=== PATIENT | female | born 1970 | race Asian ===

== ENCOUNTER 2023-03-21 06:54 | Outpatient (RCR) | payer BC, SELFPAY | END 2023-03-21 23:59 | disposition home or self-care (01) | LOC: RPT 06:54 | PROVIDERS: ATTENDING PHYSICIAN Orthopaedic Surgery; FAMILY PHYSICIAN Nurse Practitioner Family | DX: M22.2X1 Patellofemoral disorders, right knee (principal) | CPT/HCPCS: 97110; 97162 ==

== ENCOUNTER → 2024-06-14 10:25 | Outpatient (REF) | payer BC, SELFPAY | LOC: WDC 10:25 | PROVIDERS: ATTENDING PHYSICIAN Obstetrics & Gynecology; FAMILY PHYSICIAN Nurse Practitioner Family | DX: Z12.31 Encounter for screening mammogram for malignant neoplasm of breast (principal) | CPT/HCPCS: 77063; 77067 ==

== ENCOUNTER → 2024-06-18 10:17 | Outpatient (REF) | payer BC, SELFPAY | LOC: HWRAD 10:17 | PROVIDERS: ATTENDING PHYSICIAN Obstetrics & Gynecology; FAMILY PHYSICIAN Nurse Practitioner Family | DX: D25.9 Leiomyoma of uterus, unspecified (principal) | CPT/HCPCS: 76830; 76856 ==

== ENCOUNTER → 2024-09-12 07:49 | Outpatient (REF) | payer OTHER, SELFPAY | LOC: HWRAD 07:49 | PROVIDERS: ATTENDING PHYSICIAN Obstetrics & Gynecology; FAMILY PHYSICIAN Nurse Practitioner Family | DX: N83.201 Unspecified ovarian cyst, right side (principal) | CPT/HCPCS: 76830; 76856 ==

== ENCOUNTER → 2024-12-11 19:29 | Outpatient (REF) | payer OTHER, SELFPAY | LOC: MRI 19:29 | PROVIDERS: ATTENDING PHYSICIAN Obstetrics & Gynecology | DX: N83.291 Other ovarian cyst, right side (principal) | CPT/HCPCS: 72197; A9575 ==

== ENCOUNTER 2025-01-03 06:18 | Day surgery (SDC) | payer OTHER, SELFPAY ==
[2024-12-27 09:01] LABS: Hematocrit 39.9 % (37.0-47.0); Hemoglobin 13.0 g/dL (12.0-16.0); Mean Corp Hgb Conc. 32.6 g/dL (33.0-37.0); Mean Corpuscular Volume 86.4 fL (81.0-99.0); Nucleated Red Blood Cells % 0 %; Platelet Count 260 10^3/uL (130-400); Red Cell Dist. Width 13.5 % (11.5-14.5)
[2024-12-27 09:30] LABS: Blood Urea Nitrogen 13 mg/dl (7-17); Calcium 9.2 mg/dl (8.4-10.2); Carbon Dioxide 26 mmol/L (22-30); Chloride 103 mmol/L (98-107); Glucose 89 mg/dl (70-99); Potassium 4.2 mmol/L (3.5-5.1); Sodium 135 mmol/L (135-145); eGFR > 60.00
[2024-12-27 14:05] VITALS: BMI 21.9
[2025-01-03] VITALS (8 sets, daily range): BP systolic 115–146; BP diastolic 75–88; BMI 21.9
[2025-01-03] MEDS: NORMOSOL-R/PLASMALYTE-A 1000 IV (08:06)
[2025-01-03] MEDS: NEURONTIN 300 MG PO (08:06)
[2025-01-03 08:22] LABS: HCG, Urine Qualitative Screen Negative
[2025-01-03 08:35] LABS: ALT (SGPT) 43 U/L (0-35); AST (SGOT) 39 U/L (14-36); Albumin 4.5 g/dl (3.5-5.0); Alkaline Phosphatase 72 U/L (38-126); Blood Urea Nitrogen 9 mg/dl (7-17); Calcium 9.3 mg/dl (8.4-10.2); Carbon Dioxide 25 mmol/L (22-30); Chloride 106 mmol/L (98-107); Estimated Creatinine Clearance 82 ml/min; Glucose 91 mg/dl (70-99); Potassium 3.9 mmol/L (3.5-5.1); Sodium 138 mmol/L (135-145); Total Protein 7.3 g/dl (6.3-8.2); eGFR > 60.00
--- NOTE | 2025-01-03 09:17 | W.IMMPOSTOP ---
Surgical Immed Post Op Note
-
Primary Surgeon: Greta Helms DO
Assisting Surgeon: none
Pre-op Diagnosis: Menorrhagia, fibroid uterus
Post-op Diagnosis: same
Procedure Performed: Hysteroscopy D&C with US guidance
Anesthesia Type: general LMA Dr. Rodas
Specimen / Cultures: 1. endocervical curettings 2. endometrial curettings
Estimated Blood Loss: less than 2 ml
Complications: none
Operative Findings: Markedly enlarged uterus with multiple fibroids including a large posterior fibroid that is displacing the endometrial canal anteriorly in a C-shaped angle. Scope able to be advanced to approx 2/3 of endometrial cavity but could
not advance scope to see fundus or tubal ostia due to force on camera from fibroid and curved nature. Myosure Reach used to sample visible portion of endometrium.
Fluid deficit 50ml.
Counts correct times 2.
== END 2025-01-03 11:31 | disposition home or self-care (01) ==
LOC: SDS 06:18
PROVIDERS: ATTENDING PHYSICIAN Obstetrics & Gynecology; FAMILY PHYSICIAN Nurse Practitioner Family
DX: N92.0 Excessive and frequent menstruation with regular cycle (principal); D25.1 Intramural leiomyoma of uterus; N85.01 Benign endometrial hyperplasia
CPT/HCPCS: 58558; 36415; 76998; 80048; 80053; 81025; 85025; 86850; 86900; 86901; 88305; 93005

== ENCOUNTER 2025-01-12 22:46 | Inpatient (IN) | payer OTHER, SELFPAY ==
[2025-01-12 17:53] VITALS: BP 175/98
[2025-01-12 18:22] LABS: Hematocrit 35.1 % (37.0-47.0); Hemoglobin 11.0 g/dL (12.0-16.0); Mean Corp Hgb Conc. 31.3 g/dL (33.0-37.0); Mean Corpuscular Volume 87.3 fL (81.0-99.0); Nucleated Red Blood Cells % 0 %; Platelet Count 346 10^3/uL (130-400); Red Cell Dist. Width 13.4 % (11.5-14.5)
[2025-01-12 18:23] LABS: Urine Character Clear (Clear)
[2025-01-12 18:31] LABS: Urine Red Blood Cell >100 /HPF (0-2)
[2025-01-12 18:35] LABS: COVID-19 Antigen Negative (Negative)
[2025-01-12 18:46] LABS: ALT (SGPT) 323 U/L (0-35); AST (SGOT) 189 U/L (14-36); Albumin 3.7 g/dl (3.5-5.0); Alkaline Phosphatase 279 U/L (38-126); Blood Urea Nitrogen 10 mg/dl (7-17); Calcium 9.0 mg/dl (8.4-10.2); Carbon Dioxide 27 mmol/L (22-30); Chloride 105 mmol/L (98-107); Glucose 134 mg/dl (70-99); Potassium 3.9 mmol/L (3.5-5.1); Sodium 138 mmol/L (135-145); Total Protein 6.8 g/dl (6.3-8.2); eGFR > 60.00
--- NOTE | 2025-01-12 20:26 | ED.GENMED ---
History of Present Illness
General
Chief Complaint: Post Operative Problem(s)
Source: patient
Exam Limitations: none
Time Seen by Provider: 01/12/25 19:50
History of Present Illness
History of Present Illness:
54-year-old female 1 week of fever. Up to 101. On and off for the week. Some mild increased bleeding after uterine biopsy 9 days ago. Fever started 6 to 7 days ago. Some minimal cough. She did start feeling like she had a cold at the arrival
of that procedure. No shortness of breath no abdominal pain no rash no other complaints. No travel history.
Past History
Past History
ED Past Medical History: Other (Fibroid uterus)
ED Past Surgical History: Appendectomy (Age 16), and Urological (Uterine biopsy)
Social History
Tobacco: Non-smoker
Alcohol: None
Personal:
Living: with family
Employment: Not employed
Family History
Family History: Other (Noncontributory)
Review of Systems
Review of Systems
All Other Systems: Not applicable
Constitutional: Reports fever
Respiratory: Reports cough; Denies trouble breathing
Cardiac: Denies chest pain
ABD/GI: Denies abdominal pain
Phy Exam
Physical Exam
Physical Exam:
GENERAL: Alert and oriented in no apparent distress
EYE: Orbits normal.
NECK: Supple, no significant adenopathy.
ENT: Pharynx without erythema
CARDIAC: Regular rate and rhythm without any obvious murmurs.
LUNGS: A few crackles in the left base. No respiratory distress. Slight occasional dry cough
ABDOMEN: Soft, without focal tenderness or distention. Suprapubic fullness consistent with her uterine fibroid.
NEUROLOGICAL: Alert and oriented , grossly non-focal
SKIN: Warm and dry, no rash or lesion, no discoloration, skin intact.
MUSCULOSKELETAL: No edema,no deformity.Good color
PSYCH: Normal and appropriate interaction.
Course
Orders/Labs/Results
Orders:
Orders
01/12/25 18:00
Complete Blood Count/With Diff Urgent
Comprehensive Metabolic Panel Urgent
Lipase Urgent
Comment: ADD ON
01/12/25 18:02
COVID-19 Antigen Urgent
Source: Nasal Swab
Urinalysis Reflex To Culture Urgent
Date Specimen was Collected: 01/12/25
Time Specimen was Collected: 17:55
Urine Microscopic Reflex Cult Urgent
Urine Culture Urgent
DERRICK Source: U
Specimen Description:
Date Specimen was Collected: 01/12/25
Time Specimen was Collected: 17:55
01/12/25 20:19
IV Insert/Care/Rem.- Treatment PRN
0.9% Sodium Chloride 1000 ml [Nss] 1,000 ml IV BOLUS
CXR2 [CR Chest - 2 Views ] Urgent
Comment:
Reason For Exam: cough fever
01/12/25 20:20
CT Abd/Pel (IV only)-DH only Urgent
Comment:
Reason For Exam: Fevers/recent uterine biopsy
01/12/25 20:31
Blood Culture Q30M
DERRICK Source: Blood/Venous
Specimen Description:
Blood Culture Q30M
DERRICK Source: Blood/Venous
Specimen Description:
Influenza A+B Rapid Molecular Urgent
DERRICK Source: Nasal Swab
Specimen Description:
Date Specimen was Collected: 01/12/25
Time Specimen was Collected: 17:55
01/12/25 21:34
Piperacillin/Tazo 3.375 Gram [Zosyn] 3.375 gram in 50 ml IV NOW
01/12/25 21:39
Ketorolac [Toradol] 15 mg IV NOW STA
01/12/25 22:07
Dexamethasone Sod Phosphate [Decadron] 6 mg IV NOW STA
Diphenhydramine [Benadryl] 25 mg PO NOW STA
01/12/25 22:29
Add On- LAB Urgent
Tests Added?: lipase
01/12/25 22:34
Consult PSYCHOLOGIST ENGINEERING [PSYCHOLOGIST ENGINEERING CONSULT] Routine
Consulting Provider: Cisco Arzola
Was physician already notified: Yes
Reason for consult: fever post endomerial biopsy
INFECTIOUS DISEASE CONSULT Routine
Consulting Provider: Jaki Mireles
Was physician already notified: No
Reason for consult: fever likely endometritis s/p biopsy
01/12/25 22:35
Consult Notification Routine
Specialty to Notify: Infectious Disease
01/12/25 22:36
Admit/Transfer Patient As Directed
Co-Sign Provider:
Level of Care: Inpatient admission
Assign to:: Medical/Surgical
Physician / Group: hank keyes
Diagnosis: fever likley endometritis s/p biopsy etoh use disorder/transaminitis
Reason for Hospitalization: fever likley endometritis s/p biopsy etoh use disorder/transaminitis
Expected length of stay greater than two midnights?: Yes
ELOS- Estimated Length of Stay in days: 3
I certify the patient meets the requirements for IP care: Yes
Code Status As Directed
Resuscitation Status: Full Code
01/12/25 22:43
PRN Pain Medication Management As Directed
May give lesser potent ordered pain med per pt: Yes
preference::
Protocol:: Medication orders for pain may be administered in a
manner that supports deferring to patient preference
when the pt is:
- Requesting an ordered lesser potent pain medication.
Least to most potent pain medications are defined
as: acetaminophen < NSAID < tramadol < opioids
(morphine, oxycodone, hydromorphone).
- Requesting a lesser dose of the same medication IF
ORDERED.
- Requesting a less intrusive route of administration
if both routes are prescribed by the provider (PO <
IV).
Abnormal Lab Results
01/12/25 01/12/25
18:00 18:02
RBC 4.02 L 10^6/uL
(4.20-5.40)
Hgb 11.0 L g/dL
(12.0-16.0)
Hct 35.1 L %
(37.0-47.0)
MCHC 31.3 L g/dL
(33.0-37.0)
Abs Immat Gran (auto) 0.1 H 10^3/uL
(0-0.05)
Absolute Neuts (auto) 7.7 H 10^3/uL
(1.4-6.5)
Absolute Lymphs (auto) 1.0 L 10^3/uL
(1.2-3.4)
Absolute Monos (auto) 0.7 H 10^3/uL
(0.1-0.6)
Immature Gran % 0.8 H %
(0-0.5)
Neutrophils % 79.7 H %
(42.2-75.2)
Lymphocytes % 10.8 L %
(20.5-51.1)
Glucose 134 H mg/dl
(70-99)
AST 189 H U/L
(14-36)
ALT 323 H U/L
(0-35)
Alkaline Phosphatase 279 H U/L
(38-126)
Ur Occult Blood Reflex 4+ A
(Negative)
Leukocyte Esterase Rfl 3+ A
(Negative)
Urine RBC >100 A /HPF
(0-2)
Urine WBC (Reflex) 11-15 A /HPF
(0-5)
Urine Bacteria (Reflex) Moderate A
(Negative)
Urine Albumin (Reflex) 2+ A
(Neg - Trace)
01/12/25 18:00
01/12/25 18:00
Vital Signs
Initial and Last Documented VS:
Initial Vital Signs
Temp Pulse Resp BP Pulse Ox
100.4 F H 95 18 175/98 98
01/12/25 17:53 01/12/25 17:53 01/12/25 17:53 01/12/25 17:53 01/12/25 17:53
Last Documented Vital Signs
Temp Pulse Resp BP Pulse Ox
100.8 F H 92 16 160/84 98
01/12/25 21:14 01/12/25 21:10 01/12/25 21:10 01/12/25 21:10 01/12/25 21:10
MDM/Problems Addressed
Differential Diagnosis Includes:
Large differential for this autonomic fever. Including respiratory/viral, urinary, post biopsy infection. She is clinically stable. Labs are stable. She does have elevated LFTs that she has had in the past. Urine does appear infected. She
describes a relatively true cephalosporin allergy. Await CT scan. Also get a chest x-ray with a cough. Will give a dose of Cipro
*Pulse Oximetry
SaO2: 98
Oxygen Mode of Delivery: Room air
Patient hypoxic: no
*Critical Care Note
Total Time (30-74mins, 75-104mins- exclusive of procedures): Not Applicable
Data Reviewed
Review of Other/Old Records Reveals: Labs, Records, Operative Reports and Testing
Update Note
Update Note:
2209... Patient has a small bleb over her left eye that itches. She had received Toradol Zosyn and IV dye. She has had penicillins previously. This is very very localized. Not convinced it is a reaction to any of these medications however we
will give her a dose of Benadryl and 1 dose of steroids.
ED Attending Note
-
Portions of this chart may have been created with voice recognition software.� Occasional wrong word or��sound alike� substitutions may have occurred due to the inherent limitations of voice recognition software.
Discharge Plan
Departure
Patient Disposition: Admit
Date of Disposition: 01/12/25
Time of Disposition: 21:55
Presentation/result/management discussed w/ accepting MD/DO: ORNAMENTAL IRON WORKER HELPER
Discharge Problem:
Intermittent fevers, Pyelonephritis, Transaminitis, Known pelvic mass
Interventions
Interventions:
*Risk Screen - Suicide Last Done: 01/12/25 17:53
*General Assessment Last Done: 01/12/25 17:53
*Neglect/Abuse Screening Last Done: 01/12/25 17:53
*ED- Fall Risk Assessment Last Done: 01/12/25 17:53
*ED COVID-19 Vaccine History Last Done: 01/12/25 17:53
*ED Influenza Vaccine History Last Done: 01/12/25 17:53
ED-Skin Assessment Last Done: 01/12/25 20:00
[2025-01-12] MEDS: NSS 1000 IV (20:33)
[2025-01-12 21:10] VITALS: BP 160/84
[2025-01-12] MEDS: TORADOL 15 MG IV (21:40)
[2025-01-12] MEDS: ZOSYN 50 IV (21:41)
--- NOTE | 2025-01-12 22:03 | HPS.HSE ---
Family Physician
-
Family Physician: * NONE
Chief Complaint
-
Fever x 1 week
History of Present Illness
54-year-old female status post hysteroscopy, endometrial biopsy D&C 9 days ago due to menorrhagia with fibroid uterus. She reports approximately 1 week ago she started with fever up to 101 �F along with minimal cough. She also reports chronic
urinary frequency due to large fibroid however she feels frequency has increased over the past few days. She denies headache, sore throat, chest pain, palpitations, shortness of breath, abdominal pain, nausea, vomiting, diarrhea. She received IV
Zosyn in the ER developed left upper eyelid swelling was treated with Benadryl and Decadron. She also drinks daily 1 glass of beer or wine or cocktail and 4 glasses on Monday along with 4 glasses on Monday of any alcohol. Her last drink was
yesterday 01/11/2025 at noon. She is past medical history of alcohol use disorder, HLD, menorrhagia, uterine fibroids, right adnexal mass, transaminitis.
Medical History
Past Medical History
Past Medical History: Reports Other
Additional Past Medical History:
HLD
Transaminitis
Alcohol use disorder
Past Surgical History: Reports (x2) and Other
Additional Past Surgical History:
post hysteroscopy, endometrial biopsy D&C 01/03/2025
Social History
Tobacco: Non-smoker
Alcohol: Daily (1 beer wine or cocktail daily then 4 drinks each day Monday and Monday)
Drug: None
Personal:
Living: With Family
Employment: Not Employed
Family History
Family History: Not pertinent
Allergies / Home Medications
Allergies reflects when Allergies were last updated in [employer].
Home Medications with original date entered in [employer]
Allergy/Medication List:
Allergies
Allergy/AdvReac Type Severity Reaction Status Date / Time
cephalexin (From Keflex) Allergy Rash Verified 01/03/25 07:49
Home Medications
red yeast rice 1 dose PO DAILY 12/27/24
Review of Systems
-
History Source: Patient
A 12 point ROS was completed and negative except as noted: Yes
Constitutional: Reports Fever and Chills
EENT: Denies Sore Throat or Runny Nose
Respiratory: Reports Cough; Denies Trouble Breathing
Cardiac: Denies Chest Pain, Diaphoresis, Palpitations or Syncope
Abdomen/GI: Denies Abdominal Pain, Nausea, Vomiting, Diarrhea, Constipated, Bloody Stools or Black Stools
: Reports Frequency and Incontinence; Denies Dysuria, Flank Pain, Difficulty Voiding or Urgency
Musculoskeletal: Denies Joint Pain or Edema
Skin: Denies Itching or Rash
Neurological: Denies Dizzy or Headache
Endocrine: Reports No Symptoms
Hematologic/Lymphatic: Reports No Symptoms
Psych: Reports Calm
Physical Exam
Vital Signs
Vital Signs
Temp Pulse Resp BP Pulse Ox
100.8 F H 92 16 160/84 98
01/12/25 21:14 01/12/25 21:10 01/12/25 21:10 01/12/25 21:10 01/12/25 21:10
Physical Exam
General: Conversant, Fever and Chills
HEENT: NormoCephalic, Anicteric, Moist mucous membranes, PERRLA, [place] Conjunctivae, No Ptosis and Other (Left upper eyelid swelling post IV Zosyn)
Respiratory: Clear; No Wheezes, Rales or Rhonchi
Cardiac: S1/S2 and Regular Rhythm; No Murmur, Rub, Gallop or Peripheral Edema
GI: Soft, Non Tender, Non Distended, Normal Bowel Sounds and No Hepatosplenomegaly
Rectal: Deferred by Provider
Genito-urinary: Deferred by me
Musculoskeletal: No Clubbing, No Cyanosis and No Edema
Skin: Warm and Dry; No Rash
Neuro: AO x 3, No Motor Deficits, Nonfocal/grossly intact, Cranial Nerves Intact and No Sensory Deficits; No Slurred Speech, Facial Droop, Tremors or Sedated
Psych: Calm
Laboratory Results
-
01/12/25 18:00
01/12/25 18:00
Laboratory Results
Total Bilirubin 0.4 mg/dl (0.2-1.3) 01/12/25 18:00
AST 189 U/L (14-36) H 01/12/25 18:00
ALT 323 U/L (0-35) H 01/12/25 18:00
Alkaline Phosphatase 279 U/L (38-126) H 01/12/25 18:00
Data Reviewed
-
Lab Data: Labs Reviewed by me
Impression/Plan
-
Impression/plan:
Admit to telemetry
#Fever likely secondary to endometrioid is status post endometrial biopsy 01/03/2025
#History of menorrhagia/fibroid uterus
#Status post hysteroscopy D&C with ultrasound guidance 01/03/2025 Dr. Helms
temp 100.8 F, HR 92, 160/84
COVID-negative
- IV NSS
- IV Toradol given in ER
-IV Zosyn patient developed left eyelid swelling was given Benadryl and Decadron
- Will give IV Unasyn
- Consult TOLL TEST DESK WORKER Dr. Arzola made aware by ER
- Consult ID
- IV Toradol for fever
CT abdomen pelvis:1. No significant acute abnormality identified in the abdomen or
pelvis,
2. Bulky fibroid uterus.
3. Complex right adnexal mass redemonstrated.
CXR: No acute cardiopulmonary process
#Acute on chronic transaminitis likely secondary to alcohol use disorder
AST 189, ALT 323, alk phos [address] 2019 abdomen pelvis due to transaminitis liver gallbladder bile ducts, pancreas within normal limits
Follow CMP
- Check hepatitis panel
- Patient drinks 1 drink a day beer wine cocktail gin or tonic also drinks 4 drinks a day on Fridays and Saturdays total of 12 drinks a week
-Last drink was yesterday 01/11/2025 at 12 PM beer
#Anemia�normocytic
Hgb 11 <13 on 12/27/2024 recent menorrhagia secondary to fibroid uterus
Follow CMP
#HLD
Patient reports takes red rice yeast has not taken in 2 weeks due to surgery
DVT prophylaxis
SCDs
Full code
--- NOTE | 2025-01-12 22:07 | W.PN.UPDATE ---
Update Note
Progress Note Update
This note serves as an addendum to the H&P by coal drier operator Ebony Cabrera
HPI
54F non smoker S/p hysteroscopy , D & C and Uterine Biosy on 01/04/25 for menorrhagia and enlarged fibroid uterus, complex cystic mass of the right ovary, elevated CA-125, failed attempted office endometrial biopsy due to inability to bypass the
internal cervical os, HX tubo-ovarian abscess treated with antibiotics seen at ER:
- Spiked hi grade fever up to 101
- onset of fever started 6-7 days ago
- No SoB
Relevant VS
Temp Pulse Resp BP Pulse Ox
100.8 F H 92 16 160/84 98
01/12/25 21:14 01/12/25 21:10 01/12/25 21:10 01/12/25 21:10 01/12/25 21:10
PE
Gen: NAD
HEENT: anicteric
Neck: supple
Lungs: CTA
Cor: RRR S1 s2
Abdomen:�soft benign
URBAN DESIGN CONSULTANT: NFND
MS: no edema
Relevant data�
12/27/24 01/03/25 01/12/25
08:16 08:03 18:00
WBC 9.6
Hgb 13.0 11.0 L
Potassium 3.9
Creatinine 0.6
eGFR > 60.00
AST 39 H 189 H
ALT 43 H 323 H
Alkaline Phosphatase 279 H
01/12/25
18:02
Urine Nitrite (Reflex) Negative
Leukocyte Esterase Rfl 3+ A
Urine RBC >100 A
Urine WBC (Reflex) 11-15 A
01/03/25 Endocervix, curettage: pathology report
A.? Several minute fragments of benign endocervical epithelium, scant benign squamous epithelium and few benign stromal fragments in a background of abundant blood and mucus.
B. Endometrium, curettage:
? Benign endometrium with tubal metaplasia, benign stroma and scant benign endocervical and squamous epithelium.
A. Endocervix - ENDOCERVICAL CURETTINGS
B. Endometrium, NOS - ENDOMETRIAL CURETTINGS
ASSESSMENT & PLAN
SIRS( T > 100, HR > 90 ) of unclear origin - infective vs non infective
Potential origins: Post biopsy endometritis vs. infected Rt complex cystic mass vs. ETOH hepatitis vs. UA is unremarkable for UTI vs. tumor fever
- BCx sent
- Empiric IV Unasyn 1.5 mg q6H
- ID Consult
Elevated Transaminase : ETOH hepatitis
ETOH use disorder
- Hep serology
- Trend LFTs
- GI consult
HX menorrhagia enlarged fibroid uterus
S/P US guided hysteroscopy D and C 01/03/25 to rule out endometrial hyperplasia, EIN, or endometrial CA
- Pathology : Benign endometrium with tubal metaplasia, benign stroma and scant benign endocervical and squamous epithelium.
Elevated CA-125 with a complex adnexal mass.
- FU OVA1 testing for risk stratification to see if patient needs referral to [facility] for her surgery
- [facility] consult - Known to Dr Helms)
DVT Px: SCD
Full code
IP MS
[2025-01-12] MEDS: BENADRYL 25 MG PO (22:17)
[2025-01-12] MEDS: DECADRON 6 MG IV (22:17)
[2025-01-12 23:00] LABS: Lipase 63 U/L (23-300)
[2025-01-12 23:54] VITALS: BP 133/80; BMI 23.5
[2025-01-13] MEDS: NSS 1000 IV ×2 (00:27→13:12)
[2025-01-13] MEDS: UNASYN IV ×5 (00:32→22:57)
--- NOTE | 2025-01-13 01:01 | PTCARENOTE ---
received pt from ED at 0000. pt ambulated from stretcher to bed. pt A&O x 3. pt denies pain and offers no current complaints. call phillip within reach. plan of care ongoing.
[2025-01-13 07:30] VITALS: BP 130/80
[2025-01-13 08:10] LABS: Hematocrit 33.4 % (37.0-47.0); Hemoglobin 11.0 g/dL (12.0-16.0); Mean Corp Hgb Conc. 32.9 g/dL (33.0-37.0); Mean Corpuscular Volume 85.2 fL (81.0-99.0); Nucleated Red Blood Cells % 0 %; Platelet Count 372 10^3/uL (130-400); Red Cell Dist. Width 13.2 % (11.5-14.5)
[2025-01-13 08:40] LABS: ALT (SGPT) 269 U/L (0-35); AST (SGOT) 95 U/L (14-36); Albumin 3.6 g/dl (3.5-5.0); Alkaline Phosphatase 270 U/L (38-126); Blood Urea Nitrogen 10 mg/dl (7-17); Calcium 8.5 mg/dl (8.4-10.2); Carbon Dioxide 23 mmol/L (22-30); Chloride 106 mmol/L (98-107); Estimated Creatinine Clearance 74 ml/min; Glucose 118 mg/dl (70-99); Potassium 4.2 mmol/L (3.5-5.1); Sodium 136 mmol/L (135-145); Total Protein 6.7 g/dl (6.3-8.2); eGFR > 60.00
--- NOTE | 2025-01-13 10:53 | CON.ID ---
Addendum entered and electronically signed by Teddy Morgan DO 01/13/25 14:20:
I personally performed a history and physical exam of the patient and discussed management with the resident. I reviewed the resident's note and agree with the documented findings and plan of care HPI/CC.
Original Note:
Consultation
-
Date/Time Consultation Requested: 01/12/2025 22:35
Date/Time Consultation Performed: 01/13/2025 09:45
Requesting Provider: Nohemi Cabrera
Performing Provider: Dr. Teddy Moragn, Dr. Sharon Batista
Reason for Consultation: Fever, concern for endometritis s/p biopsy
Chief Complaint / Past History
Chief Complaint
Fever and chills following hysteroscopy and endometrial biopsy
History of Present Illness
54-year-old female with a past medical history of hyperlipidemia, menorrhagia, uterine fibroids, right adnexal mass, transaminitis who underwent hysteroscopy and endometrial biopsy with Dr. Helms 10 days ago for menorrhagia and fibroids in her
uterus presented with continued fevers and chills for the past 10 days. She says that her approximately 1 week ago, she has had fevers of up to 101 F at home along with continued increased urinary frequency. She has had this increased frequency
due to the fibroids however she says that following the procedure 10 days ago, the frequency had increased. She did not have any chest pain, shortness of breath, abdominal pain nausea or vomiting.
In the ED, she was found to have a temperature of 100.8 F, and moderate bacteria, WBC and 3+ leukocyte esterase in her urine. On CT scan, previously known mixed solid and cystic right nasal mass was seen alongside the bulky fibroids in her uterus.
She also was found to have increased transaminases and hepatitis panel was ordered. Blood and urine cultures were taken patient was started on IV Zosyn. Following administration of Zosyn, patient developed immediately left upper eyelid swelling.
She did not have any reported Zosyn allergies in the past. She was treated with Benadryl and Decadron and the swelling resolved. She was switched over to Unasyn 3 g every 6 hours. She does not have a history of any tobacco use but does drink
alcohol daily. Lives at home with her and family.
Past History
Additional Past Medical History:
Uterine Fibroids
HLD
Transaminitis
Alcohol use disorder
Additional Past Surgical History:
Hysteroscopy, endometrial biopsy D&C 01/03/2025
Appendectomy (Age 16)
(x2)
Allergy History:
Cephalexin (From Keflex) Allergy (Verified 01/03/25 07:49)
Rash
Zosyn
Medications Reviewed: Yes
Current Antibiotics:
Unasyn 3gm Q6
Social History
Tobacco: Non-Smoker
Alcohol: Daily
Drug: None
Personal:
Living: With Family
Employment: Not Employed
Family History
Family History: Not Pertinent
Review of Systems
Review of Systems
General: Negative Fever or Chills
Cardiovascular: Negative Chest Pain
Respiratory: Negative Dyspnea or Cough
Genital / Urological: Negative Dysuria or Flank Pain
Neurological: Negative Headache
Vital Signs
Temp Pulse Resp BP Pulse Ox
98.4 F 69 18 130/80 97
01/13/25 07:30 01/13/25 07:30 01/13/25 07:30 01/13/25 07:30 01/13/25 07:30
Physical Exam
Physical Exam
Constitutional: No Acute Distress, Comfortable and Non-toxic
Head: Normocephalic
Eyes: Sclera Anicteric
Cardiovascular: Regular Rate and S1/S2; Negative S3/S4, Murmur or Peripheral Edema
Pulmonary: Clear and Non Labored
Gastrointestinal: Soft, Non Tender, Non Distended and Normal Bowel Sounds
Extremities: Negative Edema, Clubbing, Cyanosis or Erythema
Skin: Warm and Dry
Wound: None
Neurological: Awake, Alert, Oriented and AO x 3
.
Lab / Diagnostic Study Results
01/13/25 07:35
01/13/25 07:35
Abs Immat Gran (auto) 0.1 10^3/uL (0-0.05) H 01/13/25 07:35
Absolute Neuts (auto) 8.7 10^3/uL (1.4-6.5) H 01/13/25 07:35
Absolute Lymphs (auto) 0.6 10^3/uL (1.2-3.4) L 01/13/25 07:35
Absolute Monos (auto) 0.1 10^3/uL (0.1-0.6) 01/13/25 07:35
Absolute Basos (auto) 0.0 10^3/uL (0-0.2) 01/13/25 07:35
Immature Gran % 0.5 % (0-0.5) 01/13/25 07:35
Neutrophils % 92.1 % (42.2-75.2) H 01/13/25 07:35
Lymphocytes % 5.8 % (20.5-51.1) L 01/13/25 07:35
Monocytes % 1.4 % (1.7-9.3) L 01/13/25 07:35
Eosinophils % 0.0 % (0-6) 01/13/25 07:35
Basophils % 0.2 % (0-2) 01/13/25 07:35
Ur Squamous Epith Cells 3-5 /LPF (Few) 01/12/25 18:02
Microbiology Results
Micro:
01/12/25 20:31 Influenza Types A & B (BLAYNE) - Final
Nasal Swab Negative for Influenza A & B, NAAT
Negative results must be combined with clinical observations
and patient history.
Nucleic Acid Amplification test (NAAT)performed on the
[employer] platform.
01/12/25 20:31 Blood Culture - Pending
Blood/Venous
01/12/25 20:31 Blood Culture - Pending
Blood/Venous
01/12/25 18:02 Urine Culture - Pending
Urine
Imaging:
01/12/2025 CT Abd/Pel (IV only): No significant acute abnormality identified in the abdomen or pelvis. Bulky fibroid uterus. Complex right adnexal mass redemonstrated.
Assessment / Plan
#Fever and chills post hysteroscopy and endometrial biopsy 01/03/2025
#Menorrhagia/Fibroids in the Uterus
#Acute on chronic transaminitis
HLD
Normocytic Anemia
Alcohol use disorder
Plan:
- Follow WBC, Temp Curve
- Follow Blood/Urine Cultures
- Continue Unasyn pending cultures
- Follow Hepatitis Panel
--- NOTE | 2025-01-13 12:08 | CON.MD ---
Documented by User: Charlene Jensen MD, Resident 01/13/25 14:06
Consultation - Medical
-
HPI:
54-year-old, -1-0-3, LMP Sept 7th with PMHx uterine fibroids, right complex adnexal mass, menorrhagia, hx tubo-ovarian abscess, psoriasis, hyperlipidemia, transaminitis, alcohol use disorder with recent hysteroscopy and endometrial biopsy
01/03/[address] Helms presented to the ER for fevers up to 101 over the past week. She stated prior to the procedure, she had a sore throat and felt warm. She took a Tylenol and decided to go for the procedure anyways because it was scheduled.
After surgical procedure, patient noted some vaginal spotting, cramping and bloating that then disappeared. Post-op day 3, she had significant vaginal bleeding and a fever started. Fevers were up to 101 controlled with Advil and Tylenol. When the
vaginal bleeding began, she thought it was the start of her normal menstrual period and therefore did not call the office. 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 She denies any abnormal smell or discharge in the
blood. She had some lower abdominal tenderness when she palpated the area, however no pain otherwise. Her sore throat got better however she developed a cough and headache. She denies sore throat, runny nose, sneezing, SOB. She does endorse
increased urinary incontinence. She has known stress incontinence but always had an incontinence trigger. Currently, she endorses incontinence without a trigger but denies any burning sensation. She denies any N/V/D. Her started to develop
a slight cough and headache yesterday as well.
Of note, patient has a known complex R adnexal mass. CA-125 101.2. Further cancer marker testing pending.
In the ED, BP 160/84, temp 100.8, HR 92, RR 16 satting well on room air. WBC was 9.6, AST 189, ALT 323, alk phos 270. UA revealed LE 3+, WBC 11-15, mod bacteria, 4+ blood. Ab/pelvis CT revealed no acute pathology, bulky fibroid, complex right
adnexal mass. She was given a dose of IV Zosyn however proceeded to have left upper eyelid swelling treated with Benadryl and Decadron and switched to IV Unasyn. The patient was admitted with fluids, IV Unasyn. Hepatitis panel was ordered,
infectious disease consulted, and [employer] consulted for fever after recent endometrial biopsy.
PAST MEDICAL HISTORY:
1. Tubo-ovarian abscess treated with antibiotics.
2. Occasional stress urinary incontinence symptoms.
3. Right adnexal mass
4. Uterine fibroids.
5. Psoriasis.
6. Allergic rhinitis.
7. History of infertility
8. Hyperlipidemia
9. Alcohol use disorder
10. Transaminitis
PAST SURGICAL HISTORY:
1. Two sections.
2. Appendectomy
3. Hysteroscopy D&C with US guidance 01/03/25 Dr. Helms
Allergies
Allergy/AdvReac Type Severity Reaction Status Date / Time
cephalexin (From Keflex) Allergy Rash Verified 01/03/25 07:49
Home Medications
red yeast rice 1 dose PO DAILY High Cholesterol 12/27/24
FAMILY HISTORY: Includes hypertension in her father as well as
coronary artery disease.
OBSTETRIC HISTORY: She has 3 children. She had a full-term
delivery by section in 2007. She delivered twins
at 29 weeks by section.
GYNECOLOGIC HISTORY: Last Pap 05/10/2024, negative co-test.
PHYSICAL EXAM:
Vitals: BP 130/80, HR 69, RR 18, Temp 98.4, O2 97% room air
Cardiac: Regular S1, S2
Pulm: Clear bilaterally
Abdomen: Uterus enlarged with irregular contour. Tenderness with deep palpation along RLL abdominal LLQ. BSx4 normal. Non-distended.
Pelvic exam: Normal cervix, small amount of blood tinged mucus, no cervical motion tenderness, enlarged fibroid uterus.
Extremities: No edema, erythema or calf tenderness
ASSESSMENT:
54-year-old, -1-0-3, LMP Dec 08 with PMHx uterine fibroids, right complex adnexal mass, menorrhagia with recent hysteroscopy and endometrial biopsy 01/03/[address] Helms presented to the ER SIRS (+) for temp 100.8, HR 92 on IV Unasyn
being worked up for possible source.
PLAN:
#SIRS (+) with unclear origin - infective vs Non- infective
--Differentials include UTI, post-biopsy endometritis, infected complex cystic mass, ETOH hepatitis, tumor fever, viral URI
--Urine culture pending, Blood cultures x2 pending, Hep panel pending
--Flu, covid (-), chest x-ray no acute process
-- developing similar PISANO and cough points towards viral URI
--No cervical motion tenderness, normal cervix and no abnormal discharge points away from post-biopsy endometritis
--On IV unacyn per ID - agree
--Follow cultures, temp and WBC
#Menorrhagia post-op day 3
#known enlarged uterine fibroid
#US guided hysteroscopy and D&C 01/03/25
--Pathology results from D&C benign
--LMP Dec 08, menorrhagia post op could be due to normal menstrual period as now decreasing
--Pelvic exam reassuring
#Elevated CA-125 with complex R adnexal mass
--CA-125 101.2, ultimately will require total hysterectomy with BSO
--OVA1 test pending
--F/u outpatient
#Transaminitis
#Alcohol use disorder
--Hep panel pending
--LFTs downtrending
--Management per primary team
DVT SCDs
Full code
Consultation
-
Date/Time Consultation Requested: 01/12/25
Date/Time Consultation Performed: 01/13/25
Requesting Provider: Nohemi Cabrera
Performing Provider: Dr. Priyanka Brown
Reason for Consultation: Fever post endometrial biopsy

Documented by User: Priyanka Brown DO 01/13/25 14:29
Consultation - Medical
-
HPI:
54-year-old, -1-0-3, LMP Sept 7th with PMHx uterine fibroids, right complex adnexal mass, menorrhagia, hx tubo-ovarian abscess, psoriasis, hyperlipidemia, transaminitis, alcohol use disorder with recent hysteroscopy and endometrial biopsy
01/03/[address] Helms presented to the ER for fevers up to 101 over the past week. She stated prior to the procedure, she had a sore throat and felt warm. She took a Tylenol and decided to go for the procedure anyways because it was scheduled.
After surgical procedure, patient noted some vaginal spotting, cramping and bloating that then disappeared. Post-op day 3, she had significant vaginal bleeding and a fever started. Fevers were up to 101 controlled with Advil and Tylenol. When the
vaginal bleeding began, she thought it was the start of her normal menstrual period and therefore did not call the office. 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 She denies any abnormal smell or discharge in the
blood. She had some lower abdominal tenderness when she palpated the area, however no pain otherwise. Her sore throat got better however she developed a cough and headache. She denies sore throat, runny nose, sneezing, SOB. She does endorse
increased urinary incontinence. She has known stress incontinence but always had an incontinence trigger. Currently, she endorses incontinence without a trigger but denies any burning sensation. She denies any N/V/D. Her started to develop
a slight cough and headache yesterday as well.
Of note, patient has a known complex R adnexal mass. CA-125 101.2. Further cancer marker testing pending.
In the ED, BP 160/84, temp 100.8, HR 92, RR 16 satting well on room air. WBC was 9.6, AST 189, ALT 323, alk phos 270. UA revealed LE 3+, WBC 11-15, mod bacteria, 4+ blood. Ab/pelvis CT revealed no acute pathology, bulky fibroid, complex right
adnexal mass. She was given a dose of IV Zosyn however proceeded to have left upper eyelid swelling treated with Benadryl and Decadron and switched to IV Unasyn. The patient was admitted with fluids, IV Unasyn. Hepatitis panel was ordered,
infectious disease consulted, and [employer] consulted for fever after recent endometrial biopsy.
PAST MEDICAL HISTORY:
1. Tubo-ovarian abscess treated with antibiotics.
2. Occasional stress urinary incontinence symptoms.
3. Right adnexal mass
4. Uterine fibroids.
5. Psoriasis.
6. Allergic rhinitis.
7. History of infertility
8. Hyperlipidemia
9. Alcohol use disorder
10. Transaminitis
PAST SURGICAL HISTORY:
1. Two sections.
2. Appendectomy
3. Hysteroscopy D&C with US guidance 01/03/25 Dr. Helms
Allergies
Allergy/AdvReac Type Severity Reaction Status Date / Time
cephalexin (From Keflex) Allergy Rash Verified 01/03/25 07:49
Home Medications
red yeast rice 1 dose PO DAILY High Cholesterol 12/27/24
FAMILY HISTORY: Includes hypertension in her father as well as
coronary artery disease.
OBSTETRIC HISTORY: She has 3 children. She had a full-term
delivery by section in 2007. She delivered twins
at 29 weeks by section.
GYNECOLOGIC HISTORY: Last Pap 05/10/2024, negative co-test.
PHYSICAL EXAM:
Vitals: BP 130/80, HR 69, RR 18, Temp 98.4, O2 97% room air
Cardiac: Regular S1, S2
Pulm: Clear bilaterally
Abdomen: Uterus enlarged with irregular contour. Tenderness with deep palpation along RLL abdominal LLQ. BSx4 normal. Non-distended.
Pelvic exam: Normal cervix, small amount of blood tinged mucus, no cervical motion tenderness, enlarged fibroid uterus.
Extremities: No edema, erythema or calf tenderness
ASSESSMENT:
54-year-old, -1-0-3, LMP Dec 08 with PMHx uterine fibroids, right complex adnexal mass, menorrhagia with recent hysteroscopy and endometrial biopsy 01/03/[address] Helms presented to the ER SIRS (+) for temp 100.8, HR 92 on IV Unasyn
being worked up for possible source.
PLAN:
#SIRS (+) with unclear origin - infective vs Non- infective
--Differentials include UTI, post-biopsy endometritis, infected complex cystic mass, ETOH hepatitis, tumor fever, viral URI
--Urine culture pending, Blood cultures x2 pending, Hep panel pending
--Flu, covid (-), chest x-ray no acute process
-- developing similar PISANO and cough points towards viral URI
--No cervical motion tenderness, normal cervix and no abnormal discharge points away from post-biopsy endometritis
--On IV unacyn per ID - agree
--Follow cultures, temp and WBC
#Menorrhagia post-op day 3
#known enlarged uterine fibroid
#US guided hysteroscopy and D&C 01/03/25
--Pathology results from D&C benign
--LMP Dec 08, menorrhagia post op could be due to normal menstrual period as now decreasing
--Pelvic exam reassuring
#Elevated CA-125 with complex R adnexal mass
--CA-125 101.2, ultimately will require total hysterectomy with BSO
--OVA1 test pending
--F/u outpatient
#Transaminitis
#Alcohol use disorder
--Hep panel pending
--LFTs downtrending
--Management per primary team
DVT SCDs
Full code
Patient seen with PGY-2 and agree with above note.
Patient is a 54yo who presents with a fever with concern for possible endometritis. She is s/p hysteroscopy D&C on 01/[address] Helms. She reports fevers starting 3 days after. She says she did have a cold the day of the procedure and
felt warm. Post-op she developed a cough and headache. She has been taking Tylenol and ibuprofen to help with the fever. She has mild bilateral lower abdominal pain when she palpates. She has a known fibroid uterus and complex right adnexal mass.
Ultimate plan is for hysterectomy with BSO, though this will be arranged as an outpatient with possible crotch piece baster-onc involvement given elevated CA-125. CT in the ED showed no acute abdominal process. UA concerning for possible infection. She has been
having incontinence. She also has elevated LFTs. On pelvic exam, she has an enlarged fibroid uterus to the umbilicus with no cervical motion tenderness. There is a small amount of blood tinged discharge in the vaginal vault. Continue antibiotics per
primary and ID. Urine and blood cultures pending.
--- NOTE | 2025-01-13 12:36 | PTOTSP ---
Orders received, chart reviewed. Contacted patient bedside; she reports that she has no physical therapy needs at this time and is independent with mobilizing to bathroom and managing IV pole herself.
Will discharge from caseload; if needs change please re-consult. Discussed with RN and patient.
--- NOTE | 2025-01-13 12:51 | W.PN.HOSP.TC ---
Today's Communication/Plan
-
Continue with IV Unasyn
Follow culture data
Follow LFTs
Assessment / Plan
Assessment / Plan
#Fever with tachycardia admission meeting criteria for sepsis
# Rule out endometritis -patient status post endometrial biopsy 01/03/2025.-Pain is in the central lower abdomen in the right upper quadrant. She says she had a pelvic abscess in the past. She is also having bloody vaginal discharge.
#History of menorrhagia/fibroid uterus
#Status post hysteroscopy D&C with ultrasound guidance 01/03/2025 Dr. Helms
-IV Zosyn patient developed left eyelid swelling was given Benadryl and Decadron
- Continue with IV Unasyn
- Consult CRYPTOLOGIC LINGUIST Dr. Arzola made aware by ER
- Consult ID
- IV Toradol for fever
CT abdomen pelvis:1. No significant acute abnormality identified in the abdomen or
pelvis,
2. Bulky fibroid uterus.
3. Complex right adnexal mass redemonstrated.
CXR: No acute cardiopulmonary process
#Acute on chronic transaminitis likely secondary to alcohol use disorder
AST 189, ALT 323, alk phos [address] 2019 abdomen pelvis due to transaminitis liver gallbladder bile ducts, pancreas within normal limits
Follow CMP
- Check hepatitis panel
- Patient drinks 1 drink a day beer wine cocktail gin or tonic also drinks 4 drinks a day on Fridays and Saturdays total of 12 drinks a week
-Last drink was yesterday 01/11/2025 at 12 PM beer
#Anemia�normocytic
Hgb 11 <13 on 12/27/2024 recent menorrhagia secondary to fibroid uterus
Follow CMP
#HLD
Patient reports takes red rice yeast has not taken in 2 weeks due to surgery
DVT prophylaxis
SCDs
Full code
Anticipated Discharge: > 48 hours
Subjective/Interval History
-
Date of Service: January 13, 2025
Post endometrial manipulation and biopsy patient has been experiencing lower central abdominal discomfort and bloody vaginal discharge and fevers.
She had sore throat on the day when she had endometrial biopsy but that has resolved now. Denies any shortness of breath or cough. No nausea or vomiting. No diarrhea. Denies any dysuria.
Objective Data
-
Labs:
Laboratory Results
01/13/25
07:35
WBC 9.4
Hgb 11.0 L
Hct 33.4 L
Plt Count 372
Sodium 136
Potassium 4.2
Chloride 106
Carbon Dioxide 23
BUN 10
Creatinine 0.4 L
Glucose 118 H
Calcium 8.5
Total Bilirubin 0.5
AST 95 H
ALT 269 H
Alkaline Phosphatase 270 H
Vital Signs:
Vital Signs
Temp Pulse Resp BP Pulse Ox
98.4 F 69 18 130/80 97
01/13/25 07:30 01/13/25 07:30 01/13/25 07:30 01/13/25 07:30 01/13/25 08:15
I&O
01/12/25 01/13/25 01/14/25
06:59 06:59 06:59
Intake Total 800 / 800
Balance 800 / 800
Physical Exam
-
General: No Apparent Distress
HEENT: Moist Mucous Membranes
Respiratory: Clear to Auscultation and Non Labored Respirations; Negative Accessory Resp Muscle Use
Cardiac: Regular Rhythm and S1/S2; Negative Tachycardic
GI: Soft, Nondistended, Normal Bowel Sounds and Tender (Central lower abdomen and right lower quadrant)
Neuro: AO x 3
Psych: Calm
Data Reviewed
-
CT Scan: Report Reviewed by me (CT chest)
Labs: Labs Reviewed by me
--- NOTE | 2025-01-13 14:31 | CM ---
IA completed. Lives with and 3 children in a 2-story home with no steps at the entrance. 13 steps inside the house. Full BR is on the 2nd floor.Independent prior to admission. NO hx of VN, home O2, SNF or assistive devices. No insecurities
identified. Confirmed PCP, Rx , insurance and drug coverage.
dr. ag
PCP: unknown
Rx: [facility]
[2025-01-13 15:30] VITALS: BP 119/75
[2025-01-13 18:28] LABS: Hepatitis B Surface Antigen Negative (Negative)
[2025-01-13 18:48] LABS: Hepatitis A Antibody, Total Negative (Negative); Hepatitis C Antibody Negative (Negative)
[2025-01-13 23:21] VITALS: BP 121/76
[2025-01-14] MEDS: NSS 1000 IV (01:41)
[2025-01-14] MEDS: UNASYN IV ×2 (04:54→12:13)
[2025-01-14 06:42] LABS: Hematocrit 32.9 % (37.0-47.0); Hemoglobin 10.4 g/dL (12.0-16.0); Mean Corp Hgb Conc. 31.6 g/dL (33.0-37.0); Mean Corpuscular Volume 89.6 fL (81.0-99.0); Nucleated Red Blood Cells % 0 %; Platelet Count 369 10^3/uL (130-400); Red Cell Dist. Width 13.4 % (11.5-14.5)
[2025-01-14 07:03] LABS: ALT (SGPT) 202 U/L (0-35); AST (SGOT) 80 U/L (14-36); Albumin 3.3 g/dl (3.5-5.0); Alkaline Phosphatase 224 U/L (38-126); Blood Urea Nitrogen 9 mg/dl (7-17); Calcium 8.7 mg/dl (8.4-10.2); Carbon Dioxide 26 mmol/L (22-30); Chloride 107 mmol/L (98-107); Estimated Creatinine Clearance 74 ml/min; Glucose 89 mg/dl (70-99); Potassium 3.8 mmol/L (3.5-5.1); Sodium 138 mmol/L (135-145); Total Protein 6.1 g/dl (6.3-8.2); eGFR > 60.00
[2025-01-14 07:25] VITALS: BP 145/83
[2025-01-14] MEDS: TYLENOL 650 MG PO ×2 (10:38→23:06)
--- NOTE | 2025-01-14 11:44 | CM ---
Chart reviewed. Met with pt bedside, Continues on IV ABX.
Plan: Home no needs
--- NOTE | 2025-01-14 12:08 | W.PN.HOSP.TC ---
Today's Communication/Plan
-
CW IV abx
Follow LFTs
Assessment / Plan
Assessment / Plan
#Fever with tachycardia admission meeting criteria for sepsis
# Rule out endometritis -patient status post endometrial biopsy 01/03/2025.-Pain is in the central lower abdomen in the right upper quadrant. She says she had a pelvic abscess in the past. She is also having bloody vaginal discharge.
#History of menorrhagia/fibroid uterus
#Status post hysteroscopy D&C with ultrasound guidance 01/03/2025 Dr. Helms
-Resolved fevers and improved lower abdominal pain and vaginal discharge.
-IV Zosyn patient developed left eyelid swelling was given Benadryl and Decadron
- Continue with IV Unasyn
- ID and [facility] following
- IV Toradol for fever
#Acute on chronic transaminitis likely secondary to alcohol use disorder
AST 189, ALT 323, alk phos [address] 2019 abdomen pelvis due to transaminitis liver gallbladder bile ducts, pancreas within normal limits
CT of the abdomen pelvis on admission shows no acute pathology including biliary pathology.
Follow CMP
- Hepatitis serology are negative. She will need to return back to her PCP to get hepatitis B immunization booster.
- Patient drinks 1 drink a day beer wine cocktail gin or tonic also drinks 4 drinks a day on Fridays and Saturdays total of 12 drinks a week
-Last drink was yesterday 01/11/2025 at 12 PM beer
- Improving LFTs-unclear if improved from no alcohol or from improvement of infection.
#Anemia�normocytic
Hgb 11 <13 on 12/27/2024 recent menorrhagia secondary to fibroid uterus
Follow CBC
#HLD
Patient reports takes red rice yeast has not taken in 2 weeks due to surgery
DVT prophylaxis
SCDs
Full code
Anticipated Discharge: 24 - 48 hours
Subjective/Interval History
-
Date of Service: January 14, 2025
No further fever or chills.
States improved lower abdominal pain and decreased vaginal discharge.
Objective Data
-
Labs:
Laboratory Results
01/14/25
06:17
WBC 9.9
Hgb 10.4 L
Hct 32.9 L
Plt Count 369
Sodium 138
Potassium 3.8
Chloride 107
Carbon Dioxide 26
BUN 9
Creatinine 0.5 L
Glucose 89
Calcium 8.7
Total Bilirubin 0.5
AST 80 H
ALT 202 H
Alkaline Phosphatase 224 H
Vital Signs:
Vital Signs
Temp Pulse Resp BP Pulse Ox
99.4 F 73 16 145/83 99
01/14/25 07:25 01/14/25 07:25 01/14/25 07:25 01/14/25 07:25 01/14/25 07:25
I&O
01/13/25 01/14/25 01/15/25
06:59 06:59 06:59
Intake Total 800 / 800 3240 / 3240
Balance 800 / 800 3240 / 3240
Physical Exam
-
General: Comfortable
Respiratory: Non Labored Respirations; Negative Accessory Resp Muscle Use
Cardiac: Regular Rhythm and S1/S2; Negative Tachycardic
GI: Soft, Normal Bowel Sounds and Tender (improved tenderness in RLQ and suprapubic area )
Neuro: AO x 3
Psych: Calm
Data Reviewed
-
Labs: Labs Reviewed by me
--- NOTE | 2025-01-14 12:11 | W.PN.OBG.DWH ---
Today's Communication / Plan
-
repeat ua c and s however on unasyn
suspect sxs due to fibroid ut
tt with Dr. Flaherty
Assessment/Plan
-
HD#2 on Unasyn
fuo
recent d and c dx hysteroscopy
Subjective Data
-
headache s/p tylenol. pain rated 2
c/o frequenc y
Objective Data
-
Laboratory Results
01/14/25 06:17
01/14/25 06:17
Vital Signs
Temp Pulse Resp BP Pulse Ox
99.4 F 73 16 145/83 99
01/14/25 07:25 01/14/25 07:25 01/14/25 07:25 01/14/25 07:25 01/14/25 07:25
lungs cl
cor rrr
abd +bs soft, fundus palp above umbilicus
ext nt
all cxs neg
--- NOTE | 2025-01-14 12:48 | W.PN.ID1 ---
Date of Service
Date of Service: January 14, 2025
Today's Communication
Transition to augmentin
Assessment / Plan
#Fever and chills post hysteroscopy and endometrial biopsy 01/03/2025
#Menorrhagia/Fibroids in the Uterus
#Acute on chronic transaminitis
HLD
Normocytic Anemia
Alcohol use disorder
Plan:
Currently on Unasyn (d#3)
No further fevers noted.
Blood cultures NGTD
Urine culture no growth (repeat urinalysis ordered)
Given resolution of fevers, can transition to oral Augmentin x 7 days.
Follow LFT's
����������������������������������������������������������
Chief Complaint
-: Fever
Subjective / Review of Systems
Review of Systems: No Fever, No Chills and No Abdominal Pain
Vital Signs / Physical Exam
Vital Signs
Vital Signs
Temp Pulse Resp BP Pulse Ox
99.4 F 73 16 145/83 99
01/14/25 07:25 01/14/25 07:25 01/14/25 07:25 01/14/25 07:25 01/14/25 07:25
Physical Exam
Constitutional: No Acute Distress, Comfortable and Non-toxic
Cardiovascular: S1/S2; Negative S3/S4
Pulmonary: Non Labored
Gastrointestinal: Soft, Non Tender, Non Distended, Normal Bowel Sounds, No Rebound and No Guarding
Neurological: Awake and Alert
Psychological: Calm
Objective Data
Lab Data
Lab Results
01/14/25 06:17
01/14/25 06:17
Estimated Creat Clear 74 ml/min 01/14/25 06:17
Total Bilirubin 0.5 mg/dl (0.2-1.3) 01/14/25 06:17
AST 80 U/L (14-36) H 01/14/25 06:17
ALT 202 U/L (0-35) H 01/14/25 06:17
Alkaline Phosphatase 224 U/L (38-126) H 01/14/25 06:17
Most recent labs reviewed.
Micro Results:
01/12/25 18:02 Urine Culture - Final
Urine
01/12/25 20:31 Blood Culture - Preliminary
Blood/Venous No Growth in 24 hours- Final report to follow
01/12/25 20:31 Blood Culture - Preliminary
Blood/Venous No Growth in 24 hours- Final report to follow
01/12/25 20:31 Influenza Types A & B ([facility]) - Final
Nasal Swab Negative for Influenza A & B, NAAT
Negative results must be combined with clinical observations
and patient history.
Nucleic Acid Amplification test (NAAT)performed on the
[employer] platform.
Imaging:
01/12/2025 CT Abd/Pel (IV only): No significant acute abnormality identified in the abdomen or pelvis. Bulky fibroid uterus. Complex right adnexal mass redemonstrated.
Care Review
Plan reviewed with: Physician (Hospitalist)
[2025-01-14 13:17] LABS: Urine Character Slightly Cloudy (Clear)
[2025-01-14 14:08] LABS: Urine White Cell 26-30 /HPF (0-5)
[2025-01-14 14:14] LABS: Urine Red Blood Cell >100 /HPF (0-2)
[2025-01-14 15:52] VITALS: BP 144/79
[2025-01-14] MEDS: AUGMENTIN 875 MG/125 MG 1 TABLET PO (21:21)
[2025-01-14 23:27] VITALS: BP 123/76
[2025-01-15 07:26] VITALS: BP 131/82
[2025-01-15 08:14] LABS: Hematocrit 36.9 % (37.0-47.0); Hemoglobin 11.7 g/dL (12.0-16.0); Mean Corp Hgb Conc. 31.7 g/dL (33.0-37.0); Mean Corpuscular Volume 87.9 fL (81.0-99.0); Nucleated Red Blood Cells % 0 %; Platelet Count 446 10^3/uL (130-400); Red Cell Dist. Width 13.2 % (11.5-14.5)
[2025-01-15] MEDS: TYLENOL 650 MG PO ×2 (08:20→15:29)
[2025-01-15 08:35] LABS: ALT (SGPT) 184 U/L (0-35); AST (SGOT) 57 U/L (14-36); Albumin 3.8 g/dl (3.5-5.0); Alkaline Phosphatase 258 U/L (38-126); Blood Urea Nitrogen 9 mg/dl (7-17); Calcium 9.0 mg/dl (8.4-10.2); Carbon Dioxide 26 mmol/L (22-30); Chloride 101 mmol/L (98-107); Estimated Creatinine Clearance 74 ml/min; Glucose 105 mg/dl (70-99); Potassium 4.1 mmol/L (3.5-5.1); Sodium 136 mmol/L (135-145); Total Protein 6.7 g/dl (6.3-8.2); eGFR > 60.00
[2025-01-15] MEDS: AUGMENTIN 875 MG/125 MG 1 TABLET PO ×2 (08:51→19:18)
--- NOTE | 2025-01-15 10:29 | CM ---
Reviewed chart. Met with patient bedside. Being worked up for possible UTI. Elevated WBCs and T-100F. Now on PO ABX.No change in DC plan.
Plan: Home no needs
--- NOTE | 2025-01-15 12:34 | W.PN.HOSP.TC ---
Today's Communication/Plan
-
Continue to follow fever curve. Follow CBC in AM.
Continue with ABX per ID.
Assessment / Plan
Assessment / Plan
#Fever with tachycardia admission meeting criteria for sepsis
# Rule out endometritis -patient status post endometrial biopsy 01/03/2025.-Pain is in the central lower abdomen in the right upper quadrant. She says she had a pelvic abscess in the past. She is also having bloody vaginal discharge.
#History of menorrhagia/fibroid uterus
#Status post hysteroscopy D&C with ultrasound guidance 01/03/2025 Dr. Helms
-Improved lower abdominal pain and vaginal discharge but fevers are back and white count this rising
-IV Zosyn patient developed left eyelid swelling was given Benadryl and Decadron
- IV Unasyn switched to oral Augmentin
- ID and MANAGER RESEARCH DEVELOPMENT following
#Acute on chronic transaminitis likely secondary to alcohol use disorder
AST 189, ALT 323, alk phos [address] 2019 abdomen pelvis due to transaminitis liver gallbladder bile ducts, pancreas within normal limits
CT of the abdomen pelvis on admission shows no acute pathology including biliary pathology.
Follow CMP
- Hepatitis serology are negative. She will need to return back to her PCP to get hepatitis B immunization booster.
- Patient drinks 1 drink a day beer wine cocktail gin or tonic also drinks 4 drinks a day on Fridays and Saturdays total of 12 drinks a week
-Last drink was yesterday 01/11/2025 at 12 PM beer
- Improving LFTs-unclear if improved from no alcohol or from improvement of infection.
#Anemia�normocytic
Hgb 11 <13 on 12/27/2024 recent menorrhagia secondary to fibroid uterus
Follow CBC
#HLD
Patient reports takes red rice yeast has not taken in 2 weeks due to surgery
DVT prophylaxis
SCDs
DC when okay from ID standpoint
Full code
Anticipated Discharge: 24 - 48 hours
Subjective/Interval History
-
Date of Service: January 15, 2025
She does not feel great today, she had a low-grade fever. She felt nauseous. She had a headache.
Abdominal pain is okay. Improved vaginal discharge. Denies any urinary dysuria or frequency.
Denies any sore throat or cough. No shortness of breath. No diarrhea.
Objective Data
-
Labs:
Laboratory Results
01/15/25
06:59
WBC 13.0 H
Hgb 11.7 L
Hct 36.9 L
Plt Count 446 H D
Sodium 136
Potassium 4.1
Chloride 101
Carbon Dioxide 26
BUN 9
Creatinine 0.5 L
Glucose 105 H
Calcium 9.0
Total Bilirubin 0.7
AST 57 H
ALT 184 H
Alkaline Phosphatase 258 H
Vital Signs:
Vital Signs
Temp Pulse Resp BP Pulse Ox
99.5 F 81 16 131/82 98
01/15/25 11:32 01/15/25 07:26 01/15/25 07:26 01/15/25 07:26 01/15/25 08:25
I&O
01/14/25 01/15/25 01/16/25
06:59 06:59 06:59
Intake Total 3240 / 3240 1080 / 1080
Balance 3240 / 3240 1080 / 1080
Physical Exam
-
General: Comfortable
Respiratory: Clear to Auscultation and Non Labored Respirations; Negative Accessory Resp Muscle Use
Cardiac: Regular Rhythm and S1/S2; Negative Tachycardic
GI: Soft, Nondistended, Normal Bowel Sounds and Tender (improved tenderness in lower abdo and no pain in RLQ)
Neuro: AO x 3
Psych: Calm
Data Reviewed
-
Labs: Labs Reviewed by me
--- NOTE | 2025-01-15 12:47 | W.PN.ID1 ---
Date of Service
Date of Service: January 15, 2025
Today's Communication
Continue Augmentin for today.
Assessment / Plan
#Fever and chills post hysteroscopy and endometrial biopsy 01/03/2025
#Menorrhagia/Fibroids in the Uterus
#Acute on chronic transaminitis
HLD
Normocytic Anemia
Alcohol use disorder
Plan:
s/p Unasyn x3d -> Augmentin (d#2)
No further fevers noted.
Blood cultures NGTD
White count noted to be somewhat up today.
Urine culture no growth (repeat urinalysis ordered)
Continue on for Augmentin for today.
Trend white count. If continues to rise may need additional imaging. May also transition back to Unasyn.
Follow LFT's
����������������������������������������������������������
Chief Complaint
-: Fever
Subjective / Review of Systems
Patient seen and examined. Reports some abdominal discomfort today.
Vital Signs / Physical Exam
Vital Signs
Vital Signs
Temp Pulse Resp BP Pulse Ox
99.5 F 81 16 131/82 98
01/15/25 11:32 01/15/25 07:26 01/15/25 07:26 01/15/25 07:26 01/15/25 08:25
Physical Exam
Constitutional: No Acute Distress, Comfortable and Non-toxic
Cardiovascular: S1/S2; Negative S3/S4
Pulmonary: Non Labored
Gastrointestinal: Soft, Tender (Minimal.), Non Distended, Normal Bowel Sounds, No Rebound and No Guarding
Neurological: Awake and Alert
Psychological: Calm
Objective Data
Lab Data
Lab Results
01/15/25 06:59
01/15/25 06:59
Estimated Creat Clear 74 ml/min 01/15/25 06:59
Total Bilirubin 0.7 mg/dl (0.2-1.3) 01/15/25 06:59
AST 57 U/L (14-36) H 01/15/25 06:59
ALT 184 U/L (0-35) H 01/15/25 06:59
Alkaline Phosphatase 258 U/L (38-126) H 01/15/25 06:59
Most recent labs reviewed.
Micro Results:
01/14/25 12:46 Urine Culture - Final
Urine NO GROWTH
01/12/25 20:31 Blood Culture - Preliminary
Blood/Venous No Growth in 48 hours- Final report to follow
01/12/25 20:31 Blood Culture - Preliminary
Blood/Venous No Growth in 48 hours- Final report to follow
01/12/25 18:02 Urine Culture - Final
Urine
01/12/25 20:31 Influenza Types A & B (BLAYNE) - Final
Nasal Swab Negative for Influenza A & B, NAAT
Negative results must be combined with clinical observations
and patient history.
Nucleic Acid Amplification test (NAAT)performed on the
[employer] platform.
Imaging:
01/12/2025 CT Abd/Pel (IV only): No significant acute abnormality identified in the abdomen or pelvis. Bulky fibroid uterus. Complex right adnexal mass redemonstrated.
Care Review
Plan reviewed with: Physician (Hospitalist)
--- NOTE | 2025-01-15 14:04 | W.PN.OBG.DWH ---
Today's Communication / Plan
-
continue abx as outlined by ID.
trend temps and WBC.
Reviewed need to set up consultation appt with abalone processor oncologist to discuss and set up her surgery.
Referral made to Dr. Jean-Pierre Hendricks [facility]-oncology for outpatient follow up once she is discharged home.
Assessment/Plan
-
1. Fever unknown origin- only low grade temp today.
-S/P hysteroscopy D&C 01/03. Endometritis in list of possible etiologies, though never had elevated WBC until today.
No obvious source identified on labs or exam.
-S/P Iv zosyn which was changed to IV Unasyn due to reaction to zosyn. S/p Unasyn IV and day #2 of augmentin.
Now changed back to unasyn due to leukocytosis today.
-urine, blood cultures negative
2. new leukocytosis today. Agree she should stay for repeat labs tomorrow and continued Abx. Abx mgmt and dc timing as per ID. Agree if continued to have elevated /rising WBC or fever, should have more imaging
3. Markedly enlarged uterus to level umbilicus from uterine fibroids.
4. Complex right adnexal mass.- Etiologies include complex benign cyst, endometrioma, neoplastic process.
5. Elevated CA 125 (87, repeat 101), Ova 1 elevated 5.7, reflexed to Overa serum marker testing 5.8. This gives estimate of 4.7-13.8% risk for malignancy. Reviewed benign etiologies may increase ca125 testing and this is nonspecific.
-Total abdominal hysterectomy with BSO has been recommended to Ronald, which will be set up as outpatient. Given elevated Overa testing, she was referred to abalone processor oncology service for surgery.
6. Hx menorrhagia- s/p hysteroscopy D&C on 01/03 with benign endometrium. Note should be made that neither scope nor curette could be passed to fundus of uterus due to extreme curvature of endometrial cavity from large posterior fibroid, so there is
risk of missed pathology on biopsy. Pt has been counseled in this regard.
I reviewed details of her case with Dr. Jean-Pierre Lagunas ([facility]) and he agrees she should be seen in consultation with abalone processor oncologist as outpatient. She has been provided with his office number and advised to call to schedule
a consultation. I also gave her information to Dr Jean-Pierre Lagunas so his office may also follow up with her for any needed information. She asked if there was a [facility] Wet End Helper oncologist who could see her here. I explained that presently, there is
no abalone processor onc service at . She is aware she may seek consultation with Wet End Helper onc at [facility], if she desires, once discharged but she would need to let my office know so we can discuss with them and send records. She plans to make consult
with / Janneth.
Explained to Ronald that her uterus is too large to recommend minimally invasive surgery/ She will require a midline vertical incision in order to have optimal visualization and to complete the procedure. Detailed explanation for why she is not
candidate for other approaches.She asked if she could have time to 'shrink her fibroids.' We have discussed these issues at her last office visit. Explained that delaying surgery in her situation could be dangerous if there is a neoplastic
/malignant process like sarcoma or ovarian cancer present. She agreed to call Dr Lagunas's office for appt.
Subjective Data
-
Pt reporting has fevers again. Reports headache. Feels better after tylenol.
Denies dysuria, N/V/D/C, denies URI//GI symptoms.
Reports has vaginal bleeding described as 'sticky red' discharge. Denies heavy bleeding.
Changes protection only a few times a day and not saturating pad.
Hx occasional urinary leakage (chronic).
Objective Data
-
Laboratory Results
01/15/25 06:59
01/15/25 06:59
Vital Signs
Temp Pulse Resp BP Pulse Ox
99.5 F 81 16 131/82 98
01/15/25 11:32 01/15/25 07:26 01/15/25 07:26 01/15/25 07:26 01/15/25 08:25
Appearance: well-appearing, pleasant, no acute distress.
Cor: regular rate
Pulm: nonlabored breathing
Abd: soft, Nondistended, nontender to palpation. Uterus is palpable at umbilical level. Benign exam, no suspicious findings.
ext: no calf pain or LE swelling
--- NOTE | 2025-01-15 14:48 | PN.CDI ---
CDI
- -
CDI:
Physician Documentation Request
Admit Date: 01/12/25 22:46
Dear Doctor Reynold,
Please review the following and provide your response in the progress notes.
Clinical Indicators:
PN, 01/15
#Fever with tachycardia admission meeting criteria for sepsis
# Rule out endometritis -patient status post endometrial biopsy 01/03/2025.
#Status post hysteroscopy D&C with ultrasound guidance 01/03/2025 Dr. Helms
#...-Improved lower abdominal pain and vaginal discharge but fevers are
#...back and white count this rising
#-IV Zosyn patient developed left eyelid swelling was given Benadryl and Decadron
#- IV Unasyn switched to oral Augmentin
Based on the above and your clinical assessment, please clarify the following:
Sepsis is a complication of the surgery(Endometrial Biopsy)
Sepsis is unexpected but is NOT a complication of the surgery(Endometrial Biopsy)
Sepsis is an expected occurrence and is not a complication of surgery
Other(please specify)
Use of terms such as suspected, likely, concern for, or probable (associated with a specific diagnosis that is being evaluated, monitored, or treated as if it exists) are acceptable and can be coded in the inpatient setting, when documented at the
time of discharge.
Thank you,
Jessica Anguiano RN BSN CCDS
CDI Specialist
Please contact via tiger text
Please use your independent medical judgment in providing your response.
[2025-01-15 15:59] VITALS: BP 130/84
[2025-01-15] MEDS: TORADOL 15 MG IV (16:43)
[2025-01-15 23:07] VITALS: BP 137/81
[2025-01-16] MEDS: TYLENOL 650 MG PO ×4 (00:41→22:42)
[2025-01-16 07:55] VITALS: BP 114/72
[2025-01-16 08:04] LABS: Hematocrit 35.6 % (37.0-47.0); Hemoglobin 11.7 g/dL (12.0-16.0); Mean Corp Hgb Conc. 32.9 g/dL (33.0-37.0); Mean Corpuscular Volume 85.4 fL (81.0-99.0); Platelet Count 470 10^3/uL (130-400); Red Cell Dist. Width 13.2 % (11.5-14.5)
[2025-01-16 08:42] LABS: ALT (SGPT) 220 U/L (0-35); AST (SGOT) 98 U/L (14-36); Albumin 3.8 g/dl (3.5-5.0); Alkaline Phosphatase 284 U/L (38-126); Blood Urea Nitrogen 11 mg/dl (7-17); Calcium 9.0 mg/dl (8.4-10.2); Carbon Dioxide 26 mmol/L (22-30); Chloride 102 mmol/L (98-107); Estimated Creatinine Clearance 74 ml/min; Glucose 91 mg/dl (70-99); Potassium 4.5 mmol/L (3.5-5.1); Sodium 135 mmol/L (135-145); Total Protein 6.9 g/dl (6.3-8.2); eGFR > 60.00
[2025-01-16] MEDS: AUGMENTIN 875 MG/125 MG PO (08:51)
[2025-01-16] MEDS: ZOSYN 50 IV ×2 (09:13→17:13)
--- NOTE | 2025-01-16 10:02 | W.PN.ID1 ---
Addendum entered and electronically signed by Teddy Morgan DO 01/16/25 11:58:
I saw and evaluated the patient. I reviewed the resident�s note and agree with findings and plan as documented in the resident�s note.
Patient without significant physical findings. Minimal lower abdominal pain. Notes some ongoing vaginal discharge.
Prior CT imaging reviewed with Radiology. Large fibroid noted outside of uterus, along with noted intrauterine fibroids. No abscess seen on prior CT imaging.
Ongoing, rising leukocytosis concerning.
CT scan ordered; will await results.
Continue with Zosyn; patient tolerated dose today without any issue.
Original Note:
Date of Service
Date of Service: January 16, 2025
Today's Communication
Switching from Augmentin to Zosyn
Monitor fevers
Assessment / Plan
#Fever and chills post hysteroscopy and endometrial biopsy 01/03/2025
#Menorrhagia/Fibroids in the Uterus
#Acute on chronic transaminitis
HLD
Normocytic Anemia
Alcohol use disorder
Plan:
s/p Unasyn x3d -> Augmentin (d#2)
Multiple increased readings seen, was 102.9 F yesterday, 101.9 F, 100.4 F
Blood cultures NGTD
White count continued to rise today
Repeat urinalysis showed increased urine WBCs
D/C Augmentin, Will start Zosyn
Trend white count. Recommend further imaging.
LFTs trended up, follow LFT's
����������������������������������������������������������
Chief Complaint
-: Fever
Subjective / Review of Systems
Patient seen today, reported feeling much worse. Reports feeling feverish as well as some chills as well as some increased abdominal pain at this time. Also reported having some headaches.
Review of Systems: Fever, Chills, Headache, No Cough, Abdominal Pain, No Nausea, No Vomiting and No Diarrhea
Vital Signs / Physical Exam
Vital Signs
Vital Signs
Temp Pulse Resp BP Pulse Ox
100.4 F H 85 18 114/72 94
01/16/25 07:55 01/16/25 07:55 01/16/25 07:55 01/16/25 07:55 01/16/25 07:55
Physical Exam
Constitutional: No Acute Distress and Non-toxic
Head: Normocephalic
Eyes: Sclera Anicteric
Cardiovascular: Regular Rate and S1/S2; Negative S3/S4
Pulmonary: Clear, Symmetric and Non Labored
Gastrointestinal: Soft, Tender (Mild lower abdomen tenderness), Non Distended and Normal Bowel Sounds
Skin: Warm and Dry
Neurological: Awake, Alert, Oriented and AO x 3
Psychological: Calm
Objective Data
Lab Data
Lab Results
01/16/25 07:21
01/16/25 07:21
Estimated Creat Clear 74 ml/min 01/16/25 07:21
Total Bilirubin 0.9 mg/dl (0.2-1.3) 01/16/25 07:21
AST 98 U/L (14-36) H 01/16/25 07:21
ALT 220 U/L (0-35) H 01/16/25 07:21
Alkaline Phosphatase 284 U/L (38-126) H 01/16/25 07:21
Most recent labs reviewed.
Micro Results:
01/12/25 20:31 Blood Culture - Preliminary
Blood/Venous No Growth in 72 hours- Final report to follow
01/12/25 20:31 Blood Culture - Preliminary
Blood/Venous No Growth in 72 hours- Final report to follow
01/14/25 12:46 Urine Culture - Final
Urine NO GROWTH
01/12/25 18:02 Urine Culture - Final
Urine
01/12/25 20:31 Influenza Types A & B (BLAYNE) - Final
Nasal Swab Negative for Influenza A & B, NAAT
Negative results must be combined with clinical observations
and patient history.
Nucleic Acid Amplification test (NAAT)performed on the
[employer] platform.
Imaging:
01/12/2025 CT Abd/Pel (IV only): No significant acute abnormality identified in the abdomen or pelvis. Bulky fibroid uterus. Complex right adnexal mass redemonstrated.
--- NOTE | 2025-01-16 10:18 | W.PN.HOSP.TC ---
Today's Communication/Plan
-
repeat CT imaging (C/A/P CT with IV/PO contrast) - reviewed with Lining Folder and ID
d/w patient
Assessment / Plan
Assessment / Plan
Assessment:
Sepsis POA (Fever, tachycardia)
Recent endometrial biopsy 01/03 for history of menorrhagia/fibroid uterus. Lining Folder recommends OP f/u with Lining Folder/Onc (Dr. Lagunas/Bri) for total abd hysterectomy + BSO (complex R adnexal mass)
- recurrent fevers and rising WBC count
- d/w Dr. Morgan and Scooter, will perform CT C/A/P with PO and IV contrast
- for now, return back to Zosyn (slower rate due to non allergic 'reaction' in ER)
Acute on chronic transaminitis likely secondary to alcohol use disorder
- Had CT 2019 abdomen pelvis due to transaminitis liver gallbladder bile ducts, pancreas within normal limits
- CT of the abdomen pelvis on admission shows no acute pathology including biliary pathology.
- follow CMP
- Hep serologies negative; will need hep B booster outpatient
- Last drink 01/11/25
Microcytic anemia
- monitor CBC
HLD
DVT ppx: SCDs
Code: Full
Anticipated Discharge: > 48 hours
Subjective/Interval History
-
Date of Service: January 16, 2025
reports fever/chills, no abd pain
leukocytosis worsening
Objective Data
-
Labs:
Laboratory Results
01/16/25
07:21
WBC 18.0 H
Hgb 11.7 L
Hct 35.6 L
Plt Count 470 H
Sodium 135
Potassium 4.5
Chloride 102
Carbon Dioxide 26
BUN 11
Creatinine 0.5 L
Glucose 91
Calcium 9.0
Total Bilirubin 0.9
AST 98 H
ALT 220 H
Alkaline Phosphatase 284 H
Vital Signs:
Vital Signs
Temp Pulse Resp BP Pulse Ox
100.4 F H 85 18 114/72 94
01/16/25 07:55 01/16/25 07:55 01/16/25 07:55 01/16/25 07:55 01/16/25 07:55
I&O
01/15/25 01/16/25 01/17/25
06:59 06:59 06:59
Intake Total 1080 / 1080 680 / 680
Balance 1080 / 1080 680 / 680
Physical Exam
-
General: No Apparent Distress
HEENT: Normocephalic and Atraumatic
Respiratory: Negative Wheezes
Cardiac: Regular Rhythm and S1/S2
GI: Soft
Genito-urinary: No Costovertebral Tender
Neuro: AO x 3
Psych: Calm
Data Reviewed
-
Total Time Spent with Patient (in minutes): 42
Labs: Labs Reviewed by me
[2025-01-16] MEDS: OMNIPAQUE 50 ML PO (10:51)
--- NOTE | 2025-01-16 10:56 | W.PN.OBG.DWH ---
Today's Communication / Plan
-
-Switched back to zosyn secondary to rising WBC and newly febrile.
-Trend WBC and temps
-Plan for CT C/A/P
Assessment/Plan
-
1. Fever unknown origin- only low grade temp today.
-S/P hysteroscopy D&C 01/03. Endometritis in list of possible etiologies, though never leukocytosis until 01/15. No obvious source identified on labs or exam.
-S/P Iv Zosyn which was changed to IV Unasyn due to reaction to zosyn. S/p Unasyn IV and day #2 of augmentin. Now changed back to zosyn due to increasing leukocytosis.
-urine, blood cultures negative
2. new leukocytosis. Abx mgmt and dc timing as per ID. Agree if continued to have elevated /rising WBC and febrile, rec CT C/A/P
3. Markedly enlarged uterus to level umbilicus from uterine fibroids.
4. Complex right adnexal mass.- Etiologies include complex benign cyst, endometrioma, neoplasia.
5. Elevated CA 125 (87, repeat 101), Ova 1 elevated 5.7, reflexed to Overa serum marker testing 5.8. This gives estimate of 4.7-13.8% risk for malignancy. Reviewed benign etiologies may increase ca125 testing and this is nonspecific.
-Total abdominal hysterectomy with BSO has been recommended to [facility], which will be set up as outpatient. Given elevated Overa testing, she was referred to log brander oncology service for surgery.
6. Hx menorrhagia- s/p hysteroscopy D&C on 01/03 with benign endometrium. Bleeding improving today.
Subjective Data
-
No complaints today.
Denies chills. Aware she is febrile.
Choral Teacher vaginal bleeding (light pink)
No abnormal discharge.
Objective Data
-
Laboratory Results
01/16/25 07:21
01/16/25 07:21
Vital Signs
Temp Pulse Resp BP Pulse Ox
100.4 F H 85 18 114/72 94
01/16/25 07:55 01/16/25 07:55 01/16/25 07:55 01/16/25 07:55 01/16/25 07:55
Physical exam
General: No acute distress, lying in bed
Resp: non labored breathing
Abdomen: Fibroid uterus at the level of the umbilicus. Nontender
Ext: nontender
--- NOTE | 2025-01-16 15:18 | CM ---
Addendum entered by Grace Weiss 01/17/25 10:15:
Correction: Pt is not having surgery on Monday.this was documented on the wrong patient.
Original Note:
Met with pt bedside. Pt scheduled to have surgery on Monday. Continues with IV ABX
Plan: TBD after surgery
[2025-01-16 15:48] VITALS: BP 142/86
[2025-01-16 23:15] VITALS: BP 106/64
[2025-01-17] MEDS: ZOSYN 50 IV ×5 (00:26→23:32)
[2025-01-17] MEDS: TYLENOL 650 MG PO ×3 (05:56→17:53)
[2025-01-17 07:00] VITALS: BP 105/69
[2025-01-17 08:56] LABS: Hematocrit 35.0 % (37.0-47.0); Hemoglobin 11.5 g/dL (12.0-16.0); Mean Corp Hgb Conc. 32.9 g/dL (33.0-37.0); Mean Corpuscular Volume 84.3 fL (81.0-99.0); Platelet Count 499 10^3/uL (130-400); Red Cell Dist. Width 13.3 % (11.5-14.5)
[2025-01-17 09:40] LABS: ALT (SGPT) 294 U/L (0-35); AST (SGOT) 161 U/L (14-36); Albumin 3.7 g/dl (3.5-5.0); Alkaline Phosphatase 352 U/L (38-126); Blood Urea Nitrogen 11 mg/dl (7-17); Calcium 8.8 mg/dl (8.4-10.2); Carbon Dioxide 24 mmol/L (22-30); Chloride 99 mmol/L (98-107); Estimated Creatinine Clearance 74 ml/min; Glucose 88 mg/dl (70-99); Potassium 4.5 mmol/L (3.5-5.1); Sodium 133 mmol/L (135-145); Total Protein 7.1 g/dl (6.3-8.2); eGFR > 60.00
--- NOTE | 2025-01-17 10:08 | CM ---
Reviewed chart. Met with pt bedside. Elevated temp of 102. Continues on IV ABX. Telesales Manager recommends OP f/u with Telesales Manager/Onc (Dr. Lagunas/Bri) for total abd hysterectomy + BSO (complex R adnexal mass)
Plan: Home with no needs
--- NOTE | 2025-01-17 10:27 | W.PN.OBG.DWH ---
Today's Communication / Plan
-
Continue with antibiotics
Await ID input
Patient understanding of need to follow up with UG DESIGNER/ONC as arranged with Dr Lagunas upon discharge
Assessment/Plan
-
1. Fever unknown origin- only low grade temp today.
-S/P hysteroscopy D&C 01/03. Endometritis in list of possible etiologies, though never leukocytosis until 01/15. No obvious source identified on labs or exam.
-Resumed zosyn due to increasing leukocytosis.
-urine, blood cultures negative
-CT scan unchanged
2. new leukocytosis. Abx mgmt and dc timing as per ID. Agree if continued to have elevated /rising WBC and febrile
3. Markedly enlarged uterus to level umbilicus from uterine fibroids.
4. Complex right adnexal mass.- Etiologies include complex benign cyst, endometrioma, neoplasia.
5. Elevated CA 125 (87, repeat 101), Ova 1 elevated 5.7, reflexed to Overa serum marker testing 5.8. This gives estimate of 4.7-13.8% risk for malignancy. Reviewed benign etiologies may increase ca125 testing and this is nonspecific.
-Total abdominal hysterectomy with BSO has been recommended to [facility], which will be set up as outpatient. Given elevated Overa testing, she was referred to supervisor film processing oncology service for surgery.
6. Hx menorrhagia- s/p hysteroscopy D&C on 01/03 with benign endometrium. No further bleeding, only pink discharge with wiping after urination.
Subjective Data
-
Patient without new concerns. Is aware needs follow up with UG DESIGNER/ONC after discharge.Reports small amount pink discharge. Reviewed MRI and CT scan reports with patient, explained differences in measurements are likely related to different imaging
modalities
Objective Data
-
Laboratory Results
01/17/25 07:28
01/17/25 07:28
Vital Signs
Temp Pulse Resp BP Pulse Ox
98.1 F 87 16 105/69 97
01/17/25 07:00 01/17/25 07:00 01/17/25 07:00 01/17/25 07:00 01/17/25 07:00
Abdomen-soft, nondistended, nontender, good bowel sounds, uterus at umbilicus
Extremities-no calf pain
--- NOTE | 2025-01-17 11:00 | W.PN.ID1 ---
Addendum entered and electronically signed by Teddy Morgan DO 01/17/25 15:09:
I saw and evaluated the patient. I reviewed the resident�s note and agree with findings and plan as documented in the resident�s note.
Continue with zosyn for today. Follow WBC tomorrow.
Follow temp curve. Appears overall improved from admission.
Original Note:
Date of Service
Date of Service: January 17, 2025
Today's Communication
Continue Zosyn
Assessment / Plan
#Fever and chills post hysteroscopy and endometrial biopsy 01/03/2025
#Menorrhagia/Fibroids in the Uterus
#Acute on chronic transaminitis
HLD
Normocytic Anemia
Alcohol use disorder
Plan:
s/p Unasyn x3d -> Augmentin (2d)
Continues to have fevers
Blood cultures NGTD
White count continued to rise today
Continue Zosyn (day#2)
Trend white count and temp curve (temps are trending down from yesterday)
LFTs continue to trend up, follow LFT's
����������������������������������������������������������
Chief Complaint
-: Fever
Subjective / Review of Systems
Continues to have fevers, reports that she has headaches and lingering cough alongside the fevers. Reports still having right lower quadrant abdominal tenderness. Vaginal discharge and urinary color is improving however. Continues to tolerate
Zosyn well.
Review of Systems: Fever, Headache, Cough, No Sputum Production, Abdominal Pain, No Nausea, No Vomiting, No Diarrhea and No Dysuria
Vital Signs / Physical Exam
Vital Signs
Vital Signs
Temp Pulse Resp BP Pulse Ox
98.1 F 87 16 105/69 97
01/17/25 07:00 01/17/25 07:00 01/17/25 07:00 01/17/25 07:00 01/17/25 07:00
Physical Exam
Constitutional: No Acute Distress and Non-toxic
Head: Normocephalic
Eyes: Sclera Anicteric
Cardiovascular: Regular Rate and S1/S2; Negative S3/S4
Pulmonary: Clear, Symmetric and Non Labored
Gastrointestinal: Soft, Tender (Mild lower abdomen tenderness), Non Distended and Normal Bowel Sounds
Skin: Warm and Dry
Neurological: Awake, Alert, Oriented and AO x 3
Psychological: Calm
Objective Data
Lab Data
Lab Results
01/17/25 07:28
01/17/25 07:28
Estimated Creat Clear 74 ml/min 01/17/25 07:28
Total Bilirubin 1.2 mg/dl (0.2-1.3) 01/17/25 07:28
AST 161 U/L (14-36) H 01/17/25 07:28
ALT 294 U/L (0-35) H 01/17/25 07:28
Alkaline Phosphatase 352 U/L (38-126) H 01/17/25 07:28
Most recent labs reviewed.
Micro Results:
01/12/25 20:31 Blood Culture - Preliminary
Blood/Venous No Growth in 4 days- Final report to follow
01/12/25 20:31 Blood Culture - Preliminary
Blood/Venous No Growth in 4 days- Final report to follow
01/14/25 12:46 Urine Culture - Final
Urine NO GROWTH
01/12/25 18:02 Urine Culture - Final
Urine
01/12/25 20:31 Influenza Types A & B (BLAYNE) - Final
Nasal Swab Negative for Influenza A & B, NAAT
Negative results must be combined with clinical observations
and patient history.
Nucleic Acid Amplification test (NAAT)performed on the
[employer] platform.
Imaging:
01/16/2025 CT Chest/Abd/Pel (w/ IV contrast): No acute inflammatory/infectious process throughout the chest. Mild bibasilar subsegmental atelectasis. Markedly enlarged fibroid uterus, similar to recent prior CT. Complex cystic and solid right
adnexal mass most likely ovarian in nature predominantly stable in comparison to recent CT. Malignancy is the diagnosis of exclusion. No free air or gross abnormal focal fluid collection throughout the soft tissues of the abdomen and pelvis.
01/12/2025 CT Abd/Pel (IV only): No significant acute abnormality identified in the abdomen or pelvis. Bulky fibroid uterus. Complex right adnexal mass redemonstrated.
CT Scan: Image Reviewed and Report Reviewed
[2025-01-17] MEDS: FLUSH (NSS) 1 FLUSH IV ×2 (11:56→17:43)
--- NOTE | 2025-01-17 12:11 | W.PN.HOSP.TC ---
Today's Communication/Plan
-
continue Zosyn, monitor WBC/fever curve, monitor cultures
If no improvement in 24 hours, will discuss again with ID/Car Electronics Installer and will consider initiation of transfer to [facility] where setter up/onc evaluation could occur.
Assessment / Plan
Assessment / Plan
Assessment:
Sepsis POA (Fever, tachycardia)
Recent endometrial biopsy 01/03 for history of menorrhagia/fibroid uterus.
- recurrent fevers and rising WBC count 01/16; repeat CT negative
- d/w Dr. Eddie MAI and Dr. Helms/Dariusz Car Electronics Installer
- for now, continue Zosyn (slower rate due to non allergic 'reaction' in ER)
- Car Electronics Installer recommends OP f/u with Car Electronics Installer/Onc (Dr. Lagunas/[facility]) for total abd hysterectomy + BSO (complex R adnexal mass). Dr. Arzola d/w Dr. Lagunas Car Electronics Installer/Onc ([facility]) on 01/17 - no indication for transfer at present, but if infectious workup
complete without source, then could consider transfer to [facility] hospitalist service and he could consult on the case.
Acute on chronic transaminitis likely secondary to alcohol use disorder
- Had CT 2019 abdomen pelvis due to transaminitis liver gallbladder bile ducts, pancreas within normal limits
- CT of the abdomen pelvis on admission shows no acute pathology including biliary pathology.
- follow CMP
- Hep serologies negative; will need hep B booster outpatient
- Last drink 01/11/25
Microcytic anemia
- monitor CBC
HLD
DVT ppx: SCDs
Code: Full
Anticipated Discharge: > 48 hours
Subjective/Interval History
-
Date of Service: January 17, 2025
WBC stable in 18 range, fever curve slightly improved
reports vaginal discharge improving
tolerating Zosyn well
Objective Data
-
Labs:
Laboratory Results
01/17/25
07:28
WBC 18.9 H
Hgb 11.5 L
Hct 35.0 L
Plt Count 499 H
Sodium 133 L
Potassium 4.5
Chloride 99
Carbon Dioxide 24
BUN 11
Creatinine 0.6
Glucose 88
Calcium 8.8
Total Bilirubin 1.2
AST 161 H
ALT 294 H
Alkaline Phosphatase 352 H
Vital Signs:
Vital Signs
Temp Pulse Resp BP Pulse Ox
98.1 F 87 16 105/69 97
01/17/25 07:00 01/17/25 07:00 01/17/25 07:00 01/17/25 07:00 01/17/25 07:00
I&O
01/16/25 01/17/25 01/18/25
06:59 06:59 06:59
Intake Total 680 / 680 960 / 960
Balance 680 / 680 960 / 960
Physical Exam
-
General: No Apparent Distress
HEENT: Normocephalic and Atraumatic
Respiratory: Negative Wheezes
Cardiac: Regular Rhythm and S1/S2
Genito-urinary: No Costovertebral Tender
Musculoskeletal: No Edema
Neuro: AO x 3
Hematologic / Lymphatic: No Lymphadenopathy
Psych: Calm
Data Reviewed
-
Total Time Spent with Patient (in minutes): 42
Labs: Labs Reviewed by me
--- NOTE | 2025-01-17 12:27 | W.PN.UPDATE ---
Update Note
Progress Note Update
I spoke with Dr Lagunas (CAM MILLING MACHINE OPERATOR/ONC-[facility]) about clinical situation. He advises to complete the work up for fever of unknown origin, he will see patient after discharge. He advises if patient needs transfer to tertiary care, would do for the medical
indication, CAM MILLING MACHINE OPERATOR/ONC would be consulted.
Above reviewed with Dr Feldman
[2025-01-17 15:08] VITALS: BP 107/63
--- NOTE | 2025-01-17 15:58 | PTCARENOTE ---
Pt AAO x3, MCGREGOR; OOB to BR without assistance; denies weakness/dizziness. VSS. On room air- pulse ox 96%, no SOB. Abd soft, rounded, diana PO, appetite fair. Pt c/o tenderness/discomfort Rt lower abd. Voids in BR without difficulty. Temp
currently 99.7 PO. Resting in bed at present. Will continue to monitor.
[2025-01-17 23:55] VITALS: BP 106/67
[2025-01-18] MEDS: TYLENOL 650 MG PO ×3 (00:21→17:41)
[2025-01-18] MEDS: ZOSYN 50 IV ×4 (05:08→23:16)
[2025-01-18 07:17] VITALS: BP 105/66
[2025-01-18 08:08] LABS: Hematocrit 35.3 % (37.0-47.0); Hemoglobin 11.6 g/dL (12.0-16.0); Mean Corp Hgb Conc. 32.9 g/dL (33.0-37.0); Mean Corpuscular Volume 85.9 fL (81.0-99.0); Platelet Count 548 10^3/uL (130-400); Red Cell Dist. Width 13.1 % (11.5-14.5)
[2025-01-18 08:41] LABS: ALT (SGPT) 284 U/L (0-35); AST (SGOT) 138 U/L (14-36); Albumin 3.6 g/dl (3.5-5.0); Alkaline Phosphatase 364 U/L (38-126); Blood Urea Nitrogen 8 mg/dl (7-17); Calcium 8.7 mg/dl (8.4-10.2); Carbon Dioxide 27 mmol/L (22-30); Chloride 100 mmol/L (98-107); Estimated Creatinine Clearance 74 ml/min; Glucose 88 mg/dl (70-99); Potassium 4.7 mmol/L (3.5-5.1); Sodium 135 mmol/L (135-145); Total Protein 6.8 g/dl (6.3-8.2); eGFR > 60.00
--- NOTE | 2025-01-18 09:28 | W.PN.OBG.DWH ---
Today's Communication / Plan
-
-Leukocytosis slightly improved
-Continue antibiotics per ID
-Outpatient follow up with supply planner/onc
Assessment/Plan
-
1. Fever unknown origin
-S/P hysteroscopy D&C 01/03. Endometritis in list of possible etiologies, though never leukocytosis until 01/15. No obvious source identified on labs or exam.
-Resumed zosyn due to increasing leukocytosis.
-urine, blood cultures negative
-CT scan unchanged
-If patient needed to be transferred to a tertiary care center, would be for a medical indication and supply planner/onc could be consulted
2. new leukocytosis. Abx mgmt and dc timing as per ID. Leukocytosis slightly improved today
3. Markedly enlarged uterus to level umbilicus from uterine fibroids.
4. Complex right adnexal mass.- Etiologies include complex benign cyst, endometrioma, neoplasia.
5. Elevated CA 125 (87, repeat 101), Ova 1 elevated 5.7, reflexed to Overa serum marker testing 5.8. This gives estimate of 4.7-13.8% risk for malignancy. Reviewed benign etiologies may increase ca125 testing and this is nonspecific.
-Total abdominal hysterectomy with BSO has been recommended to [facility], which will be set up as outpatient. Given elevated Overa testing, she was referred to supply planner oncology service for surgery.
6. Hx menorrhagia- s/p hysteroscopy D&C on 01/03 with benign endometrium. No further bleeding
Subjective Data
-
Patient reports diarrhea starting last night. Vaginal bleeding stopped, she has noticed cream colored discharge. She is getting frustrated that she has been here for so long. She also has noticed a decreased appetite but denies nausea or vomiting.
She has minimal abdominal pain.
Objective Data
-
Laboratory Results
01/18/25 06:19
01/18/25 06:19
Vital Signs
Temp Pulse Resp BP Pulse Ox
99.5 F 82 16 105/66 95
01/18/25 07:17 01/18/25 07:17 01/18/25 07:17 01/18/25 07:17 01/18/25 07:17
General: resting in bed
Abd: soft, minimal tenderness to deep palpation, uterus at umbilicus
--- NOTE | 2025-01-18 11:22 | W.PN.ID1 ---
Date of Service
Date of Service: January 18, 2025
Today's Communication
Continue Zosyn for today.
Assessment / Plan
# Fevers
# Leukocytosis
s/p hysteroscopy & endometrial biopsy (01/03/2025)
#Menorrhagia/Fibroids in the Uterus
#Acute on chronic transaminitis
# elevated LFT's
HLD
Normocytic Anemia
Alcohol use disorder
Plan:
Patient with continued fevers of unclear etiology. DDx includes infection, hematoma, fibroid degeneration, tumor fever, other.
Blood cultures NGTD
White count very slightly improved today although remains elevated.
Zosyn (day#3)
Trend white count and temp curve. Temp curve overall improved from admission.
If leukocytosis and fever persist over next 24-48h despite antibiotic therapy, would attempt to transfer to [facility] for furhter evaluation by Forest Pathology Professor/Onc. Not sure additional imaging will be helpful at this time (ie. MRI).
����������������������������������������������������������
Chief Complaint
-: Fever
Subjective / Review of Systems
Patient seen and examined. Intermittent low-grade fevers persist. Reports some diarrhea. Feels 'bloated'.
Vital Signs / Physical Exam
Vital Signs
Vital Signs
Temp Pulse Resp BP Pulse Ox
100.2 F 82 16 105/66 95
01/18/25 10:21 01/18/25 07:17 01/18/25 07:17 01/18/25 07:17 01/18/25 09:00
Physical Exam
Constitutional: No Acute Distress and Non-toxic
Cardiovascular: S1/S2; Negative S3/S4
Pulmonary: Clear; Negative Wheezes or Rales
Gastrointestinal: Soft, Tender (minimal), Non Distended and Normal Bowel Sounds
Neurological: Awake and Alert
Psychological: Calm
Objective Data
Lab Data
Lab Results
01/18/25 06:19
01/18/25 06:19
Estimated Creat Clear 74 ml/min 01/18/25 06:19
Total Bilirubin 0.9 mg/dl (0.2-1.3) 01/18/25 06:19
AST 138 U/L (14-36) H 01/18/25 06:19
ALT 284 U/L (0-35) H 01/18/25 06:19
Alkaline Phosphatase 364 U/L (38-126) H 01/18/25 06:19
Most recent labs reviewed.
Micro Results:
01/12/25 20:31 Blood Culture - Final
Blood/Venous No Growth - Final Report
01/12/25 20:31 Blood Culture - Final
Blood/Venous No Growth - Final Report
01/14/25 12:46 Urine Culture - Final
Urine NO GROWTH
01/12/25 18:02 Urine Culture - Final
Urine
01/12/25 20:31 Influenza Types A & B (BLAYNE) - Final
Nasal Swab Negative for Influenza A & B, NAAT
Negative results must be combined with clinical observations
and patient history.
Nucleic Acid Amplification test (NAAT)performed on the
[email or web address] platform.
Imaging:
01/16/2025 CT Chest/Abd/Pel (w/ IV contrast): No acute inflammatory/infectious process throughout the chest. Mild bibasilar subsegmental atelectasis. Markedly enlarged fibroid uterus, similar to recent prior CT. Complex cystic and solid right
adnexal mass most likely ovarian in nature predominantly stable in comparison to recent CT. Malignancy is the diagnosis of exclusion. No free air or gross abnormal focal fluid collection throughout the soft tissues of the abdomen and pelvis.
01/12/2025 CT Abd/Pel (IV only): No significant acute abnormality identified in the abdomen or pelvis. Bulky fibroid uterus. Complex right adnexal mass redemonstrated.
Care Review
Plan reviewed with: Physician (Hospitalist)
[2025-01-18] MEDS: FLUSH (NSS) 2 FLUSH IV (11:43)
--- NOTE | 2025-01-18 12:23 | W.PN.HOSP.TC ---
Today's Communication/Plan
-
CW ABX
Assessment / Plan
Assessment / Plan
Assessment:
Sepsis POA (Fever, tachycardia)
Recent endometrial biopsy 01/03 for history of menorrhagia/fibroid uterus.
- recurrent fevers and rising WBC count 01/16; repeat CT negative
- d/w Dr. Eddie MAI and Dr. Helms/Dariusz Sanitary Plumber
- for now, continue Zosyn (slower rate due to non allergic 'reaction' in ER)
- Sanitary Plumber recommends OP f/u with Sanitary Plumber/Onc (Dr. Lagunas/[place]) for total abd hysterectomy + BSO (complex R adnexal mass). Dr. Arzola d/w Dr. Lagunas Sanitary Plumber/Onc ([place]) on 01/17 - no indication for transfer at present, but if infectious workup
complete without source, [facility]
- If no other obvious infectious etiology evident ,Consider MRI pelvis with contrast - might help on question on fibroid degeneration - which could similar picture as above
Acute on chronic transaminitis likely secondary to alcohol use disorder
- Had CT 2019 abdomen pelvis due to transaminitis liver gallbladder bile ducts, pancreas within normal limits
- CT of the abdomen pelvis on admission shows no acute pathology including biliary pathology.
- follow CMP
- Hep serologies negative; will need hep B booster outpatient
- Last drink 01/11/25
Microcytic anemia
- monitor CBC
HLD
DVT ppx: SCDs
Code: Full
Anticipated Discharge: > 48 hours
Subjective/Interval History
-
Date of Service: January 18, 2025
She felt feverish this morning. She had temp of 100.2. She started to have loose stools since last night-had 3 so far. Feels little nauseous.
Pelvic abdominal discomfort is okay. No vaginal discharge. Denies any dysuria.
Objective Data
-
Labs:
Laboratory Results
01/18/25
06:19
WBC 17.2 H
Hgb 11.6 L
Hct 35.3 L
Plt Count 548 H
Sodium 135
Potassium 4.7
Chloride 100
Carbon Dioxide 27
BUN 8
Creatinine 0.5 L
Glucose 88
Calcium 8.7
Total Bilirubin 0.9
AST 138 H
ALT 284 H
Alkaline Phosphatase 364 H
Vital Signs:
Vital Signs
Temp Pulse Resp BP Pulse Ox
100.3 F 82 16 105/66 95
01/18/25 11:00 01/18/25 07:17 01/18/25 07:17 01/18/25 07:17 01/18/25 09:00
I&O
01/17/25 01/18/25 01/19/25
06:59 06:59 06:59
Intake Total 960 / 960 920 / 920
Balance 960 / 960 920 / 920
Physical Exam
-
General: No Apparent Distress
Respiratory: Clear to Auscultation and Non Labored Respirations; Negative Accessory Resp Muscle Use
Cardiac: Regular Rhythm and S1/S2; Negative Tachycardic
GI: Soft, Nondistended, Normal Bowel Sounds and Tender (Lower central abdomen area palpable fibroid in mild tenderness)
Neuro: AO x 3
Psych: Calm
Data Reviewed
-
Labs: Labs Reviewed by me
[2025-01-18 15:25] VITALS: BP 138/88
--- NOTE | 2025-01-18 17:48 | PTCARENOTE ---
Pt's most recent temp at 1736, 101.7. Administered PRN Tylenol and made Dr. Flaherty aware of fever as well that pt had just one loose BM this afternoon.
[2025-01-18 23:22] VITALS: BP 124/78
[2025-01-19] MEDS: TYLENOL 650 MG PO ×2 (03:09→13:31)
[2025-01-19] MEDS: ZOSYN 50 IV ×4 (05:01→23:22)
[2025-01-19 07:05] LABS: Hematocrit 36.4 % (37.0-47.0); Hemoglobin 11.5 g/dL (12.0-16.0); Mean Corp Hgb Conc. 31.6 g/dL (33.0-37.0); Mean Corpuscular Volume 88.1 fL (81.0-99.0); Platelet Count 605 10^3/uL (130-400); Red Cell Dist. Width 13.1 % (11.5-14.5)
[2025-01-19 07:20] VITALS: BP 110/72
[2025-01-19 07:24] LABS: ALT (SGPT) 312 U/L (0-35); AST (SGOT) 155 U/L (14-36); Albumin 3.7 g/dl (3.5-5.0); Alkaline Phosphatase 411 U/L (38-126); Blood Urea Nitrogen 8 mg/dl (7-17); Calcium 9.2 mg/dl (8.4-10.2); Carbon Dioxide 24 mmol/L (22-30); Chloride 102 mmol/L (98-107); Estimated Creatinine Clearance 74 ml/min; Glucose 100 mg/dl (70-99); Potassium 4.9 mmol/L (3.5-5.1); Sodium 135 mmol/L (135-145); Total Protein 6.9 g/dl (6.3-8.2); eGFR > 60.00
--- NOTE | 2025-01-19 10:00 | W.PN.OBG.DWH ---
Today's Communication / Plan
-
MRI
continue antibiotics per ID
outpatient follow up w/ military technology manager/onc- pt aware to contact Dr. Lagunas
Assessment/Plan
-
1. Fever unknown origin
-S/P hysteroscopy D&C 01/03. Endometritis in list of possible etiologies, though never leukocytosis until 01/15. No obvious source identified on labs or exam.
-Resumed zosyn due to increasing leukocytosis.
-urine, blood cultures negative
-CT scan unchanged
-If patient needed to be transferred to a tertiary care center, would be for a medical indication and military technology manager/onc could be consulted
-MRI ordered per primary team
2. new leukocytosis. Abx mgmt and dc timing as per ID. Leukocytosis improving today
3. Markedly enlarged uterus to level umbilicus from uterine fibroids.
4. Complex right adnexal mass.- Etiologies include complex benign cyst, endometrioma, neoplasia.
5. Elevated CA 125 (87, repeat 101), Ova 1 elevated 5.7, reflexed to Overa serum marker testing 5.8. This gives estimate of 4.7-13.8% risk for malignancy. Reviewed benign etiologies may increase ca125 testing and this is nonspecific.
-Total abdominal hysterectomy with BSO has been recommended to [facility], which will be set up as outpatient. Given elevated Overa testing, she was referred to military technology manager oncology service for surgery. Discussed f/u with Dr. Lagunas outpatient- pt aware to
call for follow up
6. Hx menorrhagia- s/p hysteroscopy D&C on 01/03 with benign endometrium. No further bleeding
Subjective Data
-
Patient says she is feeling better today. Diarrhea improved. Her abdominal pain has also improved. No vaginal bleeding.
Objective Data
-
Laboratory Results
01/19/25 06:25
01/19/25 06:25
Vital Signs
Temp Pulse Resp BP Pulse Ox
98 F 78 16 110/72 97
01/19/25 07:20 01/19/25 07:20 01/19/25 07:20 01/19/25 07:20 01/19/25 07:20
General: resting in bed
Abd: soft, nontender, uterus at umbilicus
--- NOTE | 2025-01-19 11:39 | W.PN.HOSP.TC ---
Today's Communication/Plan
-
CW Zosyn
MRI pelvis with contrast
Assessment / Plan
Assessment / Plan
Assessment:
Sepsis POA (Fever, tachycardia)
Recent endometrial biopsy 01/03 for history of menorrhagia/fibroid uterus.
- recurrent fevers and rising WBC count 01/16; repeat CT negative
- d/w Dr. Eddie MAI and Dr. Helms/Dariusz Boom Stick Worker
- for now, continue Zosyn (slower rate due to non allergic 'reaction' in ER)
- Boom Stick Worker recommends OP f/u with Boom Stick Worker/Onc (Dr. Lagunas/[place]) for total abd hysterectomy + BSO (complex R adnexal mass). Dr. Arzola d/w Dr. Lagunas Boom Stick Worker/Onc ([place]) on 01/17 - no indication for transfer at present, but if infectious workup
complete without source, then [facility] and [facility] could consult on the case.
- Since no obvious etiology for ongoing fevers despite being on IV Zosyn will order MRI pelvis with contrast - might help on question on fibroid degeneration - which could similar picture as above
Acute on chronic transaminitis likely secondary to alcohol use disorder
- Had CT 2019 abdomen pelvis due to transaminitis- liver gallbladder bile ducts, pancreas within normal limits
- CT of the abdomen pelvis on admission shows no acute pathology including biliary pathology.
- follow CMP
- Hep serologies negative; will need hep B booster outpatient
- Last drink 01/11/25
- With persistent LFT abnormalities -will ask GI to weigh in tomorrow
Microcytic anemia
- monitor CBC
HLD
DVT ppx: SCDs
Code: Full
DW ID today
Anticipated Discharge: > 48 hours
Subjective/Interval History
-
Date of Service: January 19, 2025
She had fever spikes yesterday.
Today with no fever. No nausea no diarrhea today. She had 1 small loose stool. No abdominal discomfort other than the fibroid discomfort.
Denies shortness of breath.
Objective Data
-
Labs:
Laboratory Results
01/19/25
06:25
WBC 13.7 H
Hgb 11.5 L
Hct 36.4 L
Plt Count 605 H
Sodium 135
Potassium 4.9
Chloride 102
Carbon Dioxide 24
BUN 8
Creatinine 0.6
Glucose 100 H
Calcium 9.2
Total Bilirubin 0.8
AST 155 H
ALT 312 H
Alkaline Phosphatase 411 H
Vital Signs:
Vital Signs
Temp Pulse Resp BP Pulse Ox
98 F 78 16 110/72 97
01/19/25 07:20 01/19/25 07:20 01/19/25 07:20 01/19/25 07:20 01/19/25 07:20
I&O
01/18/25 01/19/25 01/20/25
06:59 06:59 06:59
Intake Total 920 / 920 500 / 500
Balance 920 / 920 500 / 500
Physical Exam
-
General: Comfortable
Respiratory: Clear to Auscultation and Non Labored Respirations; Negative Accessory Resp Muscle Use
Cardiac: Regular Rhythm and S1/S2
GI: Soft, Nondistended, Normal Bowel Sounds and Tender (suprapubic area as prior from her fibroids)
Neuro: AO x 3
Psych: Calm
Data Reviewed
-
Labs: Labs Reviewed by me
[2025-01-19] MEDS: FLUSH (NSS) 2 FLUSH IV (13:32)
--- NOTE | 2025-01-19 14:03 | W.PN.ID1 ---
Date of Service
Date of Service: January 19, 2025
Today's Communication
Continue antibiotics.
Assessment / Plan
# Fevers
# Leukocytosis
s/p hysteroscopy & endometrial biopsy (01/03/2025)
#Menorrhagia/Fibroids in the Uterus
#Acute on chronic transaminitis
# elevated LFT's
HLD
Normocytic Anemia
Alcohol use disorder
Plan:
Patient with continued fevers of unclear etiology. DDx includes infection, hematoma, fibroid degeneration, tumor fever, other.
Blood cultures NGTD
White count improved today although remains elevated.
Zosyn (day#4)
Trend white count and temp curve. Temp curve overall improved from admission.
If leukocytosis and fever persist over next 24-48h despite antibiotic therapy, would attempt to transfer to [facility] for furhter evaluation by Functional Support Analyst/Onc.
Case discussed with Primary service who notes that MRI imaging may provide additional delineation of uterine process. Await MRI results.
����������������������������������������������������������
Chief Complaint
-: Fever and Leukocytosis
Subjective / Review of Systems
Patient seen and examined. Reports some ongoing fevers. Mild abdominal discomfort.
Vital Signs / Physical Exam
Vital Signs
Vital Signs
Temp Pulse Resp BP Pulse Ox
98 F 78 16 110/72 97
01/19/25 07:20 01/19/25 07:20 01/19/25 07:20 01/19/25 07:20 01/19/25 07:20
Physical Exam
Constitutional: No Acute Distress and Non-toxic
Cardiovascular: S1/S2; Negative S3/S4
Pulmonary: Clear; Negative Wheezes or Rales
Gastrointestinal: Soft, Tender (minimal), Non Distended and Normal Bowel Sounds
Neurological: Awake and Alert
Psychological: Calm
Objective Data
Lab Data
Lab Results
01/19/25 06:25
01/19/25 06:25
Estimated Creat Clear 74 ml/min 01/19/25 06:25
Total Bilirubin 0.8 mg/dl (0.2-1.3) 01/19/25 06:25
AST 155 U/L (14-36) H 01/19/25 06:25
ALT 312 U/L (0-35) H 01/19/25 06:25
Alkaline Phosphatase 411 U/L (38-126) H 01/19/25 06:25
Most recent labs reviewed.
Micro Results:
01/12/25 20:31 Blood Culture - Final
Blood/Venous No Growth - Final Report
01/12/25 20:31 Blood Culture - Final
Blood/Venous No Growth - Final Report
01/14/25 12:46 Urine Culture - Final
Urine NO GROWTH
01/12/25 18:02 Urine Culture - Final
Urine
01/12/25 20:31 Influenza Types A & B (BLAYNE) - Final
Nasal Swab Negative for Influenza A & B, NAAT
Negative results must be combined with clinical observations
and patient history.
Nucleic Acid Amplification test (NAAT)performed on the
[employer] platform.
Imaging:
01/16/2025 CT Chest/Abd/Pel (w/ IV contrast): No acute inflammatory/infectious process throughout the chest. Mild bibasilar subsegmental atelectasis. Markedly enlarged fibroid uterus, similar to recent prior CT. Complex cystic and solid right
adnexal mass most likely ovarian in nature predominantly stable in comparison to recent CT. Malignancy is the diagnosis of exclusion. No free air or gross abnormal focal fluid collection throughout the soft tissues of the abdomen and pelvis.
01/12/2025 CT Abd/Pel (IV only): No significant acute abnormality identified in the abdomen or pelvis. Bulky fibroid uterus. Complex right adnexal mass redemonstrated.
Care Review
Plan reviewed with: Physician (Hospitalist)
[2025-01-19 15:00] VITALS: BP 123/69
[2025-01-19 23:31] VITALS: BP 121/76
[2025-01-20] MEDS: ZOSYN 50 IV ×2 (05:02→12:33)
[2025-01-20 09:30] VITALS: BP 120/76
[2025-01-20 10:16] LABS: Hematocrit 35.2 % (37.0-47.0); Hemoglobin 11.5 g/dL (12.0-16.0); Mean Corp Hgb Conc. 32.7 g/dL (33.0-37.0); Mean Corpuscular Volume 84.8 fL (81.0-99.0); Nucleated Red Blood Cells % 0 %; Platelet Count 674 10^3/uL (130-400); Red Cell Dist. Width 13.1 % (11.5-14.5)
[2025-01-20 10:21] LABS: ALT (SGPT) 233 U/L (0-35); AST (SGOT) 85 U/L (14-36); Albumin 3.7 g/dl (3.5-5.0); Alkaline Phosphatase 407 U/L (38-126); Blood Urea Nitrogen 10 mg/dl (7-17); Calcium 9.3 mg/dl (8.4-10.2); Carbon Dioxide 24 mmol/L (22-30); Chloride 101 mmol/L (98-107); Estimated Creatinine Clearance 74 ml/min; Glucose 124 mg/dl (70-99); Potassium 4.6 mmol/L (3.5-5.1); Sodium 133 mmol/L (135-145); Total Protein 7.1 g/dl (6.3-8.2); eGFR > 60.00
--- NOTE | 2025-01-20 12:00 | CM ---
Reviewed chart. Met with pt bedside. Continues on IV abx. T-99.7
Plan: Home with no needs
--- NOTE | 2025-01-20 13:24 | W.PN.ID1 ---
Date of Service
Date of Service: January 20, 2025
Today's Communication
D/C antibiotic
Assessment / Plan
# Fevers
# Leukocytosis
s/p hysteroscopy & endometrial biopsy (01/03/2025)
#Menorrhagia/Fibroids in the Uterus
#Acute on chronic transaminitis
# elevated LFT's
HLD
Normocytic Anemia
Alcohol use disorder
Plan:
White count remains slightly elevated, although overall stable.
MRI concerning for neoplasm.
Blood cultures NGTD
Given negative cultures and findings on MRI, infection less likely, and inflammatory process likely secondary to malignancy.
Discontinue further antibiotics.
Needs follow-up by Outside Upholsterer/Onc following D/C.
����������������������������������������������������������
Chief Complaint
-: Fever and Leukocytosis
Subjective / Review of Systems
Review of Systems: No Fever
Vital Signs / Physical Exam
Vital Signs
Vital Signs
Temp Pulse Resp BP Pulse Ox
99.7 F 81 16 120/76 96
01/20/25 09:30 01/20/25 09:30 01/20/25 09:30 01/20/25 09:30 01/20/25 09:48
Physical Exam
Constitutional: No Acute Distress and Non-toxic
Cardiovascular: S1/S2; Negative S3/S4
Pulmonary: Clear; Negative Wheezes or Rales
Gastrointestinal: Soft, Tender (minimal), Non Distended and Normal Bowel Sounds
Neurological: Awake and Alert
Psychological: Calm
Objective Data
Lab Data
Lab Results
01/20/25 09:30
01/20/25 09:30
Estimated Creat Clear 74 ml/min 01/20/25 09:30
Total Bilirubin 0.7 mg/dl (0.2-1.3) 01/20/25 09:30
AST 85 U/L (14-36) H 01/20/25 09:30
ALT 233 U/L (0-35) H 01/20/25 09:30
Alkaline Phosphatase 407 U/L (38-126) H 01/20/25 09:30
Most recent labs reviewed.
Micro Results:
01/12/25 20:31 Blood Culture - Final
Blood/Venous No Growth - Final Report
01/12/25 20:31 Blood Culture - Final
Blood/Venous No Growth - Final Report
01/14/25 12:46 Urine Culture - Final
Urine NO GROWTH
01/12/25 18:02 Urine Culture - Final
Urine
01/12/25 20:31 Influenza Types A & B ([facility]) - Final
Nasal Swab Negative for Influenza A & B, NAAT
Negative results must be combined with clinical observations
and patient history.
Nucleic Acid Amplification test (NAAT)performed on the
[employer] platform.
Imaging:
01/20/2025 MRI pelvis with/without contrast: interval increase in size and complexity and enhancement of large right ovarian mass, now highly suspicious for neoplasm. Redemonstration of numerous large uterine fibroids, grossly stable. Please see
full dictation for additional detail.
01/16/2025 CT Chest/Abd/Pel (w/ IV contrast): No acute inflammatory/infectious process throughout the chest. Mild bibasilar subsegmental atelectasis. Markedly enlarged fibroid uterus, similar to recent prior CT. Complex cystic and solid right
adnexal mass most likely ovarian in nature predominantly stable in comparison to recent CT. Malignancy is the diagnosis of exclusion. No free air or gross abnormal focal fluid collection throughout the soft tissues of the abdomen and pelvis.
01/12/2025 CT Abd/Pel (IV only): No significant acute abnormality identified in the abdomen or pelvis. Bulky fibroid uterus. Complex right adnexal mass redemonstrated.
Care Review
Plan reviewed with: Physician (Hospitalist)
--- NOTE | 2025-01-20 13:33 | W.PN.HOSP.TC ---
Today's Communication/Plan
-
dc home today
OP [employer] Layer Scrubber Tender/Onc f/u
Assessment / Plan
Assessment / Plan
Assessment:
Sepsis POA (Fever, tachycardia)
Recent endometrial biopsy 01/03 for history of menorrhagia/fibroid uterus.
- recurrent fevers and rising WBC count 01/16; repeat CT negative
- d/w Dr. Eddie MAI and Dr. Helms/Dariusz [facility] [employer] Tender
- dc Abx
- Pelvic MRI with suspected ovarian malignancy
- OP f/u with [facility] Layer Scrubber Tender/Onc (Dr. Lagunas/Bri) for total abd hysterectomy + BSO (complex R adnexal mass).
Acute on chronic transaminitis likely secondary to alcohol use disorder
- Had CT 2019 abdomen pelvis due to transaminitis- liver gallbladder bile ducts, pancreas within normal limits
- CT of the abdomen pelvis on admission shows no acute pathology including biliary pathology.
- follow CMP
- Hep serologies negative; will need hep B booster outpatient
- Last drink 01/11/25
Microcytic anemia
- monitor CBC
HLD
DVT ppx: SCDs
Code: Full
Anticipated Discharge: Today
Subjective/Interval History
-
Date of Service: January 20, 2025
no fevers
Objective Data
-
Labs:
Laboratory Results
01/20/25
09:30
WBC 14.3 H
Hgb 11.5 L
Hct 35.2 L
Plt Count 674 H
Sodium 133 L
Potassium 4.6
Chloride 101
Carbon Dioxide 24
BUN 10
Creatinine 0.6
Glucose 124 H
Calcium 9.3
Total Bilirubin 0.7
AST 85 H
ALT 233 H
Alkaline Phosphatase 407 H
Vital Signs:
Vital Signs
Temp Pulse Resp BP Pulse Ox
99.7 F 81 16 120/76 96
01/20/25 09:30 01/20/25 09:30 01/20/25 09:30 01/20/25 09:30 01/20/25 09:48
I&O
01/19/25 01/20/25 01/21/25
06:59 06:59 06:59
Intake Total 500 / 500 1400 / 1400
Balance 500 / 500 1400 / 1400
Physical Exam
-
General: No Apparent Distress
HEENT: Normocephalic and Atraumatic
Respiratory: Negative Wheezes
Cardiac: Regular Rhythm and S1/S2
GI: Soft and Nontender
Musculoskeletal: No Edema
Neuro: AO x 3
Psych: Calm
Data Reviewed
-
Total Time Spent with Patient (in minutes): 41
Labs: Labs Reviewed by me
--- NOTE | 2025-01-20 13:36 | W.PN.OBG.DWH ---
Today's Communication / Plan
-
f/up with newsroom intern onc/Dr Lagunas
Assessment/Plan
-
per hospitalist/ID
chronic elev LFTs
anticipate dc home with f/up with [employer] intern onc
Subjective Data
-
eating, feels less distended
Objective Data
-
Laboratory Results
01/20/25 09:30
01/20/25 09:30
Vital Signs
Temp Pulse Resp BP Pulse Ox
99.7 F 81 16 120/76 96
01/20/25 09:30 01/20/25 09:30 01/20/25 09:30 01/20/25 09:30 01/20/25 09:48
slender as female
lungs cl
cor rrr
abd less distended, fibroid ut at umbiilcus
ext nt
had mri pelvis. No findings to explain source of wbc/fever
R adnexal mass now 9 cm.
fibroid ut unchanged
--- NOTE | 2025-01-20 13:42 | W.DCSUMMARY ---
Discharge Summary
Discharge Data
Date of Admission: 01/12/25
Date of Discharge: 01/20/25
-
Pending Results: No
Hospital Course
54 y/o F with known R adnexal mass presented to with fevers and leukocytosis 1 week after endometrial D&C with biopsy performed for menorrhagia from fibroids. Her infectious workup did not reveal any etiology in cultures or CT imaging. her Pelvic
MRI confirmed fibroids and enlarging ovarian mass. ID and [employer] [facility] evaluated and recommended discharge off antibiotics and follow up urgently with [facility] [facility]-Onc at [place] Dr. Lagunas. Patient was discharged in stable condition on 01/20/25 to home.
Discharge Plan
-
Patient Disposition: Home (Routine Discharge)
Discharge Diagnosis/Procedures: fibroids, R adnexal mass
Condition: Fair
Diet: Regular
Activity: As tolerated
Referrals:
Jean-Pierre Lagunas Jr., MD [Active, Gynecology]
NONE,* [Family Provider, Internal Medicine]
Prescriptions:
Continued
red yeast rice
1 dose PO DAILY
Discharge Orders:
Discharge Patient (As Directed); Ordered 01/20/25
Ordered By: Anitha Feldman
Discharge Date and Time
Print Language: CHINESE
[2025-01-20 14:13] VITALS: BP 131/86
[2025-01-20] MEDS: TYLENOL 650 MG PO (14:14)
[2025-01-20 15:10] VITALS: BP 104/66
--- NOTE | 2025-01-20 15:57 | CM ---
Pt discharged to home. She is follow-up with [employer]OR [employer]-oncology. Her will transport her home in his care
Plan: Home, no needs
== END 2025-01-20 17:48 | disposition home or self-care (01) | DRG 864 ==
LOC: 4 EAST ACU 22:46
PROVIDERS: Clinical Nurse Specialist Family Health; Emergency Medicine; Internal Medicine; Obstetrics & Gynecology; ADMITTING PHYSICIAN Internal Medicine; ATTENDING PHYSICIAN Internal Medicine; EMERGENCY PHYSICIAN Emergency Medicine; OTHER PHYSICIAN Internal Medicine Infectious Disease; OTHER PHYSICIAN Student in an Organized Health Care Education/Training Program
DX: R50.9 Fever, unspecified (principal); N71.9 Inflammatory disease of uterus, unspecified; Z11.52 Encounter for screening for COVID-19; D25.9 Leiomyoma of uterus, unspecified; E78.5 Hyperlipidemia, unspecified; F10.10 Alcohol abuse, uncomplicated; N92.0 Excessive and frequent menstruation with regular cycle
CPT/HCPCS: 71046; 71260; 72197; 74177; 80053; 81003; 81015; 83690; 85025; 85027; 86704; 86706; 86708; 86803; 87040; 87086; 87340; 87502; 87811; 96365; 96375; 99285; A9575; Q9967